=== PATIENT | female | born 1950 | race Hispanic/Latino ===

== ENCOUNTER 2017-06-30 17:20 | Emergency (ER) | payer MEDICARE ==
[2017-06-30 17:33] VITALS: TEMP 98.4
[2017-06-30] MEDS ORDERED: Oxymetazoline 0.05% Nasal Spray (30 ml) NS STA (18:22)
--- NOTE | 2017-06-30 18:26 | ED PDOC ---
Arrival/HPI - General Chief Complaint: ENT Problem Time Seen by Provider: 06/30/17 18:22 Historian: Patient - History of Present Illness Narrative History of Present Illness (Text): 06/30/17 18:23 This 67 yo female presents to this Emergency department with her complaining of epistaxis from left nares, intermittent since last night. Patient denies trauma, the use of blood thinner, headache, diplopia, dysarthria , dizziness, or abnormal gait. Time/Duration: Other (see hpi) Context: Home Past Medical History - Provider Review Nursing Documentation Reviewed: Yes - Cardiac Hx Cardiac Disorders: No - Pulmonary Hx Respiratory Disorders: No - Neurological Hx Neurological Disorder: No - HEENT Hx HEENT Disorder: No - Renal Hx Renal Disorder: No - Endocrine/Metabolic Hx Endocrine Disorders: No Hx Diabetes Mellitus Type 2: Yes - Hematological/Oncological Hx Blood Disorders: No Hx Blood Transfusions: No Hx Blood Transfusion Reaction: No - Integumentary Hx Dermatological Disorder: Yes Other/Comment: POORLY HEALING WOUND L 3RD TOE - Musculoskeletal/Rheumatological Hx Musculoskeletal Disorders: No Hx Falls: No - Gastrointestinal Hx Gastrointestinal Disorders: No - Genitourinary/Gynecological Hx Genitourinary Disorders: No - Psychiatric Hx Psychophysiologic Disorder: No Hx Substance Use: No - Surgical History Hx Amputation: Yes (THIRD LEFT TOE) Hx Section: Yes Hx Tonsillectomy: Yes Other/Comment: left third toe amputation. - Anesthesia Hx Anesthesia: No - Suicidal Assessment Feels Threatened In Home Enviroment: No Family/Social History - Physician Review Nursing Documentation Reviewed: Yes Family/Social History: Other (noncontributory) Smoking Status: Never Smoked Hx Alcohol Use: No Hx Substance Use: No Allergies/Home Meds Allergies/Adverse Reactions: Allergies No Known Allergies Allergy (Verified 06/30/17 17:25) Home Medications: Home Meds Medication Instructions Recorded Confirmed No Known Home Med 06/30/17 06/30/17 Review of Systems - Review of Systems Constitutional: Normal. absent: Fatigue, Weight Change, Fevers Eyes: Normal ENT: Epistaxis Respiratory: Normal. absent: SOB, Cough Cardiovascular: Normal. absent: Chest Pain Gastrointestinal: Normal. absent: Nausea, Vomiting Genitourinary Female: Normal Musculoskeletal: Normal Skin: Normal Neurological: Normal. absent: Headache, Dizziness, Focal Weakness, Gait Changes , Speech Changes, Facial Droop, Disequilibrium Endocrine: Normal Hemo/Lymphatic: Normal Psychiatric: Normal Physical Exam Vital Signs Temp Pulse Resp BP Pulse Ox 06/30/17 17:29 98.4 F 97 H 20 201/107 H 98 Temperature: Afebrile Blood Pressure: Normal Pulse: Regular Respiratory Rate: Normal Appearance: Positive for: Well-Appearing, Non-Toxic, Comfortable Pain Distress: None Mental Status: Positive for: Alert and Oriented X 3 - Systems Exam Head: Present: Atraumatic, Normocephalic Pupils: Present: PERRL Extroacular Muscles: Present: EOMI Conjunctiva: Present: Normal Mouth: Present: Moist Mucous Membranes Nose (External): Present: Atraumatic Nose (Internal): Present: Epistaxis (from left nare, nose bleeding has stopped) Neck: Present: Normal Range of Motion. No: Meningeal Signs Abdomen: Present: Normal Bowel Sounds. No: Tenderness, Distention, Peritoneal Signs Back: Present: Normal Inspection Upper Extremity: Present: Normal Inspection, Normal ROM. No: Cyanosis, Edema Lower Extremity: Present: Normal Inspection. No: Edema Neurological: Present: GCS=15, CN II-XII Intact, Speech Normal Skin: Present: Warm, Dry, Normal Color. No: Rashes Psychiatric: Present: Alert, Oriented x 3, Normal Insight, Normal Concentration Medical Decision Making ED Course and Treatment: 06/30/17 19:34 Re-evaluation. Patient feels better. Discussed results and plan with patient who expresses understanding. All questions answered and there is agreement with the plan to discharge home with instructions. Patient stable for discharge. Return if symptoms persist or worsen. Patient remained stable during the course of Emergency department visit. Epistaxis has improved. Patient does not want to have nasal packing at this time. she will return to Emergency department if nosebleed returns. Re-evaluation Time: 19:36 Reassessment Condition: Re-examined, Improved - Medication Orders Current Medication Orders: Discontinued Medications Oxymetazoline HCl (Afrin 0.05%) 3 ml NS STAT STA Stop: 06/30/17 18:23 Disposition/Present on Arrival - Present on Arrival Any Indicators Present on Arrival: No History of DVT/PE: No History of Uncontrolled Diabetes: Yes Urinary Catheter: No History of Decub. Ulcer: No History Surgical Site Infection Following: None - Disposition Have Diagnosis and Disposition been Completed?: Yes Diagnosis: Posterior epistaxis Disposition: HOME/ ROUTINE Disposition Time: 19:38 Patient Plan: Discharge Condition: IMPROVED Discharge Instructions (ExitCare): Nosebleeds (DC) Additional Instructions: Call Nose ear and throat doctor in 1-2 days for revaluation. Do not blow your nose, open your mouth when you sneezed, drink cold beverages, or room temperature drinks or food. Use a humidifier, and avoid strenuous activities. Return to emergency if nosebleed returns. Have blood pressure recheck in 1-2 days. Referrals: Hank Woodard DO [Staff Provider] - Follow up with primary Forms: [employer] (Slovenian)
[2017-06-30 20:18] VITALS: BP 134/72; PULSE 90; RESP 18; O2SAT 99
== END 2017-06-30 20:20 | disposition home or self-care (01) ==
LOC: ED 17:20
DX: R04.0 Epistaxis (principal); E11.9 Type 2 diabetes mellitus without complications

== ENCOUNTER 2018-05-23 12:06 | Inpatient (IN) | payer MEDICARE, OTHER ==
[2018-05-23 12:14] VITALS: BMI 32.4
--- NOTE | 2018-05-23 12:24 | ED PDOC ---
Arrival/HPI - General Time Seen by Provider: 05/23/18 12:07 Historian: Patient, EMS - History of Present Illness Narrative History of Present Illness (Text): 05/23/18 12:18 A 67 year old female, whose past medical history includes diabetes, is brought into the emergency department via EMS for further evaluation of altered mental status. Patient reports being unable to lift herself up from the toilette at her chiropractor's office this morning. Patient reports this happens often at home. The patient states that she had a fall 4 days ago and sustained an injury to her right arm, which is currently hurting. As per EMS, patient became dizzy at the chiropractor's office and fell. Patient denies fevers, chills, headache, chest pain, shortness of breath, dyspnea on exertion, cough, abdominal pain, nausea, vomiting, diarrhea, back pain, neck pain, urinary/bowel changes, or any other complaint. PMD: Dr. Shaikh Time/Duration: Prior to Arrival Symptom Onset: Sudden Symptom Course: Unchanged Activities at Onset: Rest, Light Context: Home Past Medical History - Provider Review Nursing Documentation Reviewed: Yes - Cardiac Hx Cardiac Disorders: No - Pulmonary Hx Respiratory Disorders: No - Neurological Hx Neurological Disorder: No - HEENT Hx HEENT Disorder: No - Renal Hx Renal Disorder: No - Endocrine/Metabolic Hx Endocrine Disorders: No Hx Diabetes Mellitus Type 2: Yes - Hematological/Oncological Hx Blood Disorders: No Hx Blood Transfusions: No Hx Blood Transfusion Reaction: No - Integumentary Hx Dermatological Disorder: Yes Other/Comment: POORLY HEALING WOUND L 3RD TOE - Musculoskeletal/Rheumatological Hx Musculoskeletal Disorders: No Hx Falls: No - Gastrointestinal Hx Gastrointestinal Disorders: No - Genitourinary/Gynecological Hx Genitourinary Disorders: No - Psychiatric Hx Psychophysiologic Disorder: No Hx Substance Use: No - Surgical History Hx Amputation: Yes (THIRD LEFT TOE) Hx Section: Yes Hx Tonsillectomy: Yes Other/Comment: left third toe amputation. - Anesthesia Hx Anesthesia: No - Suicidal Assessment Feels Threatened In Home Enviroment: No Family/Social History - Physician Review Nursing Documentation Reviewed: Yes Family/Social History: No Known Family HX Smoking Status: Never Smoked Hx Alcohol Use: No Hx Substance Use: No Allergies/Home Meds Allergies/Adverse Reactions: Allergies No Known Allergies Allergy (Verified 06/30/17 17:25) Home Medications: Home Meds Medication Instructions Recorded Confirmed glyBURIDE [Glyburide] 10 mg PO DAILY 05/23/18 05/23/18 Review of Systems - Physician Review All systems were reviewed & negative as marked: Yes - Review of Systems Constitutional: absent: Fevers Respiratory: absent: SOB, Cough Cardiovascular: absent: Chest Pain, VINES Gastrointestinal: absent: Abdominal Pain, Stool Changes, Diarrhea, Nausea, Vomiting Genitourinary Female: absent: Urine Output Changes Musculoskeletal: absent: Back Pain, Neck Pain Neurological: absent: Headache Physical Exam Vital Signs Reviewed: Yes Temperature: Febrile Blood Pressure: Hypertensive Respiratory Rate: Normal Appearance: Positive for: Non-Toxic, Comfortable Pain Distress: None Mental Status: Positive for: Alert and Oriented X 3 Medical Decision Making ED Course and Treatment: 05/23/18 12:25 Impression: A 67 year old female is brought into the emergency department via EMS s/p fall and dizziness at chiropractor's office prior to arrival. Plan: -- CTA Head/Neck -- Head CT -- EKG -- Right Shoulder X- Ray -- Chest X-ray -- Urine Culture -- Urinalysis -- Labs -- IV Fluids -- Reassess and disposition Prior Visits: Notes and results from previous visits were reviewed. Progress Notes: 05/23/18 12:15: Code Stroke called. Chest X-ray Dictator : Armando Guillermo MD Report Date : 05/23/2018 13:22:20 IMPRESSION:No active disease. Right Shoulder X- Ray Signed By : Armando Chapa MD Date Signed : 05/23/2018 13:23 IMPRESSION: Normal radiographs of the right shoulder. PROCEDURE: CT Angiography of the neck with contrast Signed By : Armando Chapa MD Date Signed : 05/23/2018 13:13 IMPRESSION: Unremarkable CT Angiography of the Brain. PROCEDURE: CT HEAD WITHOUT CONTRAST Signed By : Armando Chapa MD Date Signed : 05/23/2018 13:47 IMPRESSION: No acute intracranial findings. NIHSS Scale ([place]) Time Performed: 12:15 - How Severe is the Stoke Baseline Level of Consciousness: 0=Alert LOC to Questions: 0=Both comments correct LOC to commands: 0=Obeys both correctly Best Gaze: 0=Normal Visual: 0=No visual loss Facial: 0=Normal Motor Arm - Left: 0=No drift Motor Arm - Right: 0=No drift Motor Leg - Left: 0=No drift Motor Leg - Right: 0=No drift Limb Ataxia: 0=Absent Sensory: 0=Normal Best Language: 0=No aphasia Dysarthia: 0=Normal articulation Extinction & Inattention (Neglect): 0=Normal, no object Score: 0 Risk Level: No Stroke Risk rTPA Inclusion/Exclusion - Refusal of Treatment Patient Refused Treatment: No - Inclusion Criteria for Altepase Patient is 18 years or Older: Yes The Clinical Diagnosis of Ischemic Stroke That is Causing a Potentially Disabling Neurological Deficit: No Time of Onset is Well Established to be Less Than 270 Minute Before Treatment Would Begin: Yes Risk/Benefit Discussed With Patient/Family Member Present: No - Scribe Statement Cindy Echeverria Provider Scribe Attestation: All medical record entries made by the Scribe were at my direction and personally dictated by me. I have reviewed the chart and agree that the record accurately reflects my personal performance of the history, physical exam, medical decision making, and the department course for this patient. I have also personally directed, reviewed, and agree with the discharge instructions and disposition. Disposition/Present on Arrival - Present on Arrival Any Indicators Present on Arrival: Yes History of DVT/PE: No History of Uncontrolled Diabetes: Yes Urinary Catheter: No History Surgical Site Infection Following: None - Disposition Have Diagnosis and Disposition been Completed?: Yes Diagnosis: Near syncope Disposition: HOSPITALIZED Disposition Time: 15:30 Condition: STABLE
[2018-05-23] MEDS ORDERED: Iohexol 350 MG/100 ML VIAL ONE (12:25)
--- NOTE | 2018-05-23 12:51 | CT ---
Date of service: 05/23/2018 PROCEDURE: CT HEAD WITHOUT CONTRAST. HISTORY: Code Stroke COMPARISON: None available. TECHNIQUE: Axial computed tomography images were obtained through the head/brain without intravenous contrast. Radiation dose: Total exam DLP = 938.9 mGy-cm. This CT exam was performed using one or more of the following dose reduction techniques: Automated exposure control, adjustment of the mA and/or kV according to patient size, and/or use of iterative reconstruction technique. FINDINGS: HEMORRHAGE: No intracranial hemorrhage. BRAIN: No mass effect or edema. Chronic microvascular changes are seen in the periventricular white matter. Old lacunar infarct in the right caudate nucleus. Mild atrophy VENTRICLES: Unremarkable. No hydrocephalus. CALVARIUM: Unremarkable. PARANASAL SINUSES: Unremarkable as visualized. No significant inflammatory changes. MASTOID AIR CELLS: Unremarkable as visualized. No inflammatory changes. OTHER FINDINGS: None. IMPRESSION: No acute intracranial findings
--- NOTE | 2018-05-23 13:16 | CT ---
Date of service: 05/23/2018 PROCEDURE: CT Angiography of the neck with contrast HISTORY: AMS - code stroke COMPARISON: None. TECHNIQUE: Contiguous axial images of the neck were obtained from the level of the skull-base to the superior mediastinum in the arteriographic phase of enhancement. Coronal and sagittal reformats or also generated. IV contrast dose: 100 cc of Omni 350 Radiation dose: Total exam DLP = 604.44 mGy-cm. This CT exam was performed using one or more of the following dose reduction techniques: Automated exposure control, adjustment of the mA and/or kV according to patient size, and/or use of iterative reconstruction technique. FINDINGS: RIGHT CAROTID ARTERIES: Common Carotid Artery: Normal. Carotid Bifurcation: Normal. Internal Carotid Artery:Normal. External Carotid Artery (proximal branches): Normal. LEFT CAROTID ARTERIES: Common Carotid Artery: Normal. Carotid Bifurcation: Normal. Internal Carotid Artery:Normal. External Carotid Artery (proximal branches): Normal. VERTEBRAL ARTERIES: Right Vertebral Artery: Normal. Left Vertebral Artery: Normal. OTHER FINDINGS: no aortic atherosclerotic calcification or mural plaque present. IMPRESSION: Calcified plaque in the carotids without stenosis. CT Angiography of the Brain. HISTORY: AMS - code stroke COMPARISON: None available. TECHNIQUE: CT angiography of the intracranial arteries was performed. Coronal and sagittal maximum intensity projection reformated images were generated. Radiation dose: Total exam DLP = 604.44 mGy-cm. This CT exam was performed using one or more of the following dose reduction techniques: Automated exposure control, adjustment of the mA and/or kV according to patient size, and/or use of iterative reconstruction technique. FINDINGS: INTERNAL CEREBRAL ARTERIES: Unremarkable. The skull base, petrous, cavernous and supraclinoid segments are bilaterally widely patent. ANTERIOR CEREBRAL ARTERIES: Unremarkable. A1 and A2 segments are widely patent. Smaller distal branches unremarkable, as visualized. MIDDLE CEREBRAL ARTERIES: Unremarkable. M1 and M2 segments are widely patent. Perisylvian branches grossly symmetric. POSTERIOR CIRCULATION: Basilar Artery: Unremarkable. Distal Vertebral Arteries: Heavily calcified vertebral arteries Posterior Cerebral Arteries: Unremarkable. Posterior Inferior Cerebellar Arteries: Unremarkable. ANEURYSM/ VASCULAR MALFORMATIONS: None. OTHER FINDINGS: None. IMPRESSION: Unremarkable CT Angiography of the Brain.
--- NOTE | 2018-05-23 13:26 | RAD ---
Date of service: 05/23/2018 PROCEDURE: Radiographs of the Right Shoulder HISTORY: s/p fall r/o fx COMPARISON: No prior. FINDINGS: BONES: Normal. No fracture. JOINTS: Normal. Glenohumeral and acromioclavicular joints preserved. No osteoarthritis. SOFT TISSUES: Normal. OTHER FINDINGS: None. IMPRESSION: Normal radiographs of the right shoulder.
--- NOTE | 2018-05-23 13:26 | RAD ---
Date of service: 05/23/2018 HISTORY: Code Stroke COMPARISON: 08/18/2014 FINDINGS: LUNGS: No active pulmonary disease. PLEURA: No significant pleural effusion identified, no pneumothorax apparent. CARDIOVASCULAR: No aortic atherosclerotic calcification present. Normal cardiac size. No pulmonary vascular congestion. OSSEOUS STRUCTURES: No significant abnormalities. VISUALIZED UPPER ABDOMEN: Normal. OTHER FINDINGS: None. IMPRESSION: No active disease.
[2018-05-23 14:07] LABS: VENOUS BLOOD GAS BASE EXCESS -2.8 mmol/L (0.0-2.0); VENOUS BLOOD GAS PO2 69 mm/Hg (30-55); VENOUS BLOOD PH 7.42 (7.32-7.43)
--- NOTE | 2018-05-23 14:16 | CP.PCM.CON ---
History of Present Illness - History of Present Illness History of Present Illness: Neurology Consultation (Dr. Reynolds's Service) Consulting Provider: Dr. Polanco (Code Stroke) CC: Code Stroke HPI: Mrs. Stiles is a 67 year old female with a past medical history significant for uncontrolled DM2 with diabetic neuropathy, HTN, HLD and hypothyroidism who presented after a near syncopal episode. Neurology was consulted after code stroke was called in the [facility] [place] [facility]. Patient reports that she was at her chiropractor's office earlier today and was unable to lift herself from the toilet in the bathroom there secondary to weakness/dizziness. Patient reports that after trying several times, she fell off of the toilet. She reports that she has fallen multiple times at home recently, including four days ago when she fell off of her bed causing her to injure her right shoulder. This was her reason for visiting her chiropractor today. Outside of right shoulder pain, patient denies any current complaints and further 12 point ROS is unremarkable. PMH: As stated above PSH: LLE Third Digit Amputation, and Tonsillectomy Family History: Denies Social History: Denies any tobacco, alcohol or illicit drug use Allergies: NKDA Home Medications: As per MAR PMD: Dr. Shaikh Review of Systems - Review of Systems Review of Systems: As stated in HPI, otherwise negative Past Patient History - Infectious Disease Hx of Infectious Diseases: None - Past Social History Smoking Status: Never Smoked - CARDIAC Hx Cardiac Disorders: No - PULMONARY Hx Respiratory Disorders: No - NEUROLOGICAL Hx Neurological Disorder: No - HEENT Hx HEENT Problems: No - RENAL Hx Chronic Kidney Disease: No - ENDOCRINE/METABOLIC Hx Endocrine Disorders: No Hx Diabetes Mellitus Type 2: Yes - HEMATOLOGICAL/ONCOLOGICAL Hx Blood Disorders: No Hx Blood Transfusions: No Hx Blood Transfusion Reaction: No - INTEGUMENTARY Hx Dermatological Problems: Yes Other/Comment: POORLY HEALING WOUND L 3RD TOE - MUSCULOSKELETAL/RHEUMATOLOGICAL Hx Musculoskeletal Disorders: No Hx Falls: No - GASTROINTESTINAL Hx Gastrointestinal Disorders: No - GENITOURINARY/GYNECOLOGICAL Hx Genitourinary Disorders: No - PSYCHIATRIC Hx Psychophysiologic Disorder: No Hx Substance Use: No - SURGICAL HISTORY Hx Amputation: Yes (THIRD LEFT TOE) Hx Section: Yes Hx Tonsillectomy: Yes Other/Comment: left third toe amputation. - ANESTHESIA Hx Anesthesia: No Meds Allergies/Adverse Reactions: Allergies Allergy/AdvReac Type Severity Reaction Status Date / Time No Known Allergies Allergy Verified 06/30/17 17:25 - Medications Medications: Current Medications Sodium Chloride (Sodium Chloride 0.9%) 1,000 mls @ 100 mls/hr IV .Q10H MASOUD Physical Exam - Constitutional Appears: No Acute Distress - Head Exam Head Exam: ATRAUMATIC, NORMOCEPHALIC - Eye Exam Eye Exam: EOMI, Normal appearance, PERRL. absent: Conjunctival injection, Nystagmus, Periorbital swelling, Periorbital tenderness, Scleral icterus Pupil Exam: NORMAL ACCOMODATION - Respiratory Exam Respiratory Exam: NORMAL BREATHING PATTERN - Cardiovascular Exam Cardiovascular Exam: REGULAR RHYTHM - GI/Abdominal Exam GI & Abdominal Exam: Normal Bowel Sounds, Soft. absent: Tenderness - Neurological Exam Neurological exam: Alert, CN II-XII Intact, Oriented x3, Reflexes Normal - Expanded Neurological Exam Expanded Patient oriented to: person, place, time Cranial nerves: EOM's Intact: Normal, Facial Palsey w/Forehead Movement: Normal, Facial Palsey w/o Forehead Movement: Normal, Nystagmus: Normal, Tongue Deviation: Normal Cerebellar Function: Finger to Nose: Normal Sensory exam: Lower Extremity Light Touch: Normal, Upper Extremity Light Touch: Normal Neuro motor strength exam: Left Upper Extremity: 5, Right Upper Extremity: 0 (Unable to test this extremity 2/2 right shoulder pain), Left Lower Extremity: 5, Right Lower Extremity: 5 Coma Scale Eye Opening: SPONTANEOUS Coma Scale Motor Response: OBEYS COMMANDS Coma Scale Verbal: Oriented Coma Scale Total: 15 - Psychiatric Exam Psychiatric exam: Normal Affect, Normal Mood - Skin Skin Exam: Dry, Warm Results - Vital Signs Recent Vital Signs: Last Vital Signs Temp 100.2 F H 05/23/18 12:06 Pulse 100 H 05/23/18 12:06 Resp 18 05/23/18 12:06 BP 170/88 H 05/23/18 12:06 Pulse Ox 96 05/23/18 12:06 Assessment & Plan - Assessment and Plan (Free Text) Assessment: 67 year old female with a past medical history significant for uncontrolled DM2 with diabetic neuropathy, HTN, HLD and hypothyroidism who presented after a near syncopal episode. Plan: -CT Head without contrast showed mild atrophy, chronic microvascular changes in periventricular white matter, old lacunar infarct in the right caudate nucleus and no acute intracranial findings -CTA Head/Neck was unremarkable -Will obtain MRI Brain -Further recommendations as per Dr. Reynolds Patient seen and assessed with attending, Dr. Reynolds. Oliver Weber PGY2 - Date & Time Date: 05/23/18 Time: 14:18
[2018-05-23 14:22] LABS: BASO # 0.03 K/mm3 (0.0-2.0); BASO % 0.1 % (0.0-3.0); HEMOGLOBIN 13.6 g/dL (12.0-16.0); LYMPH # 0.9 (1.2-3.4); LYMPH % 4.4 % (22.0-35.0); MEAN CELL VOLUME 93.5 fl (80.0-105.0); MEAN CORPUSCULAR HEMOGLOBIN 32.5 pg (25.0-35.0); MEAN CORPUSCULAR HGB CONC 34.8 g/dl (31.0-37.0); MEAN PLATELET VOLUME 9.9 fl (7.0-11.0); MONO # 1.6 (0.1-0.6); MONO % 7.7 % (1.0-6.0); PLATELET COUNT 402 10^3/uL (120.0-450.0); RBC 4.18 10^6/uL (3.5-6.1); RED CELL DISTRIBUTION WIDTH 12.6 % (11.5-14.5); WHITE BLOOD COUNT 21.4 10^3/uL (4.5-11.0)
[2018-05-23 14:31] LABS: INR 1.26; PARTIAL THROMBOPLASTIN TIME 30.5 Seconds (26.9-38.3)
[2018-05-23 14:41] LABS: ALB/GLOB RATIO 0.9 (1.1-1.8); ALBUMIN 3.3 g/dL (3.0-4.8); ALT/SGPT 24 U/L (7-56); AST/SGOT 20 U/L (14-36); BLOOD UREA NITROGEN 27 mg/dL (7-21); GFR NON-AFRICAN AMERICAN > 60; HDL CHOLESTEROL 21 mg/dL (29-60)
[2018-05-23 14:43] LABS: LDL CHOLESTEROL 80 mg/dL (0-129)
[2018-05-23 14:51] LABS: B-TYPE NATRIURETIC PEPTIDE 3790 pg/mL (0-450); TROPONIN I 0.05 ng/mL
[2018-05-23 15:00] LABS: URINE BILIRUBIN NEGATIVE (NEGATIVE); URINE BLOOD MODERATE (NEGATIVE); URINE GLUCOSE (UA) >=1000 mg/dL (NEGATIVE); URINE LEUKOCYTE ESTERASE NEGATIVE Leu/uL (NEGATIVE); URINE PROTEIN 100 mg/dL (<30 mg/dL); URINE UROBILINOGEN 0.2 E.U./dL (<1 E.U./dL)
[2018-05-23] MEDS: Sodium Chloride 0.9% 1,000 ML IV SCH (15:01)
[2018-05-23 15:03] LABS: URINE APPEARANCE CLEAR (CLEAR); URINE COLOR YELLOW (YELLOW)
[2018-05-23 15:05] LABS: URINE BACTERIA MANY /hpf; URINE RBC 25 - 30 /hpf (0-2)
[2018-05-23 15:06] LABS: URINE AMORPHOUS SEDIMENT FEW /hpf; URINE COARSE GRANULAR CAST TRACE /hpf
[2018-05-23 15:08] LABS: BARBITURATES, UR NEGATIVE (NEGATIVE); BENZODIAZEPINES, UR NEGATIVE (NEGATIVE); OPIATES, UR NEGATIVE (NEGATIVE); PHENCYCLIDINE, UR NEGATIVE (NEGATIVE)
[2018-05-23 15:24] LABS: ATYPICAL LYMPHOCYTE 0 % (0.0-0.0); BAND 0 % (0-2); LYMPHOCYTE 7 % (22.0-35.0); MONOCYTE 8 % (1.0-6.0); NEUTROPHIL 85 % (50.0-70.0)
[2018-05-23 15:25] LABS: HYPOCHROMIA 2+; PLATELET ESTIMATE HIGH (NORMAL); ROULEAU 2+; TOXIC GRANULATION 2+
[2018-05-23] MEDS ORDERED: cefTRIAXone 1 gm 1 GM/100 ML BAG IVPB SCH (16:15)
[2018-05-23 21:49] LABS: TROPONIN I 0.05 ng/mL
[2018-05-23] MEDS: Cefepime 1gm in NS 100ml 1 GM/100 ML BAG IVPB SCH (22:49)
[2018-05-23] MEDS ORDERED: Pneumococcal 23-Valent Vaccine IM ONE (22:50)
[2018-05-23] MEDS ORDERED: Influenza Vaccine 60 mcg/0.5 mL SYR (4YR UP) IM ONE (22:50)
[2018-05-23] MEDS: Insulin Lispro (HUMAlog) HIGH Coverage SC SCH (22:52)
[2018-05-23] MEDS ORDERED: Insulin Lispro 1 UNITS/0.01 ML ONE (22:55)
--- NOTE | 2018-05-23 23:18 | CARD ---
APPROVED REPORT Date of service: 05/23/2018 EKG Measurement Heart [id number] DC [id number] [id number] <Conclusion> Normal sinus rhythm Nonspecific T wave abnormality Abnormal ECG
[2018-05-23] MEDS: Vancomycin 1gm in NS 250ml 1 GM/250 ML BAG IVPB SCH (23:38)
--- NOTE | 2018-05-23 23:48 | HP ---
DATE OF EXAM: 05/23/2018 HISTORY OF PRESENT ILLNESS: The patient is a 67-year-old known to me from multiple previous admissions. The patient states that she has back and neck issues. She goes to chiropractor for that. Today when she was there, she went to use the bathroom. When she tried to get up, she was unable to lift herself from the toilet, tried multiple times and finally when she tried, she fell on the right side and that was the same reason, she went to see the chiropractor because of her shoulder and neck pain. So, the ambulance was called and she was brought to emergency room. The patient is having difficulty walking, so code stroke was called and stroke team was called. The patient had CT scan done that is unremarkable. CTA also was done that is unremarkable. PAST MEDICAL HISTORY: 1. Significant for uncontrolled insulin-dependent diabetes. She is very noncompliant. 2. Diabetic neuropathy. 3. Hypertension. 4. Hypothyroidism. 5. History of multiple admissions for her foot infection. ALLERGIES: SHE IS NOT ALLERGIC TO ANY MEDICATIONS. The patient has peripheral vascular disease. She has chronic foot wound for that. She follows with Dr. Rondon for year, and she has been under the care of Dr. Rondon for right foot wound. MEDICATIONS AT HOME: She is on insulin. She takes blood pressure medication off and on. I cannot recall when I refilled her last medication. REVIEW OF SYSTEMS: Significant for having generalized weakness, otherwise no focal weakness or numbness. PHYSICAL EXAMINATION: GENERAL: She is awake and alert, able to communicate. VITAL SIGNS: She is afebrile, pulse 90, respirations 18, blood pressure 138/72. LUNGS: Bilateral fair air flow. No rhonchi or crackle. HEART: S1 and S2 audible. ABDOMEN: Soft, obese, nontender. No rebound. No guarding. NEUROLOGIC: She is awake, alert, oriented. Recently, she was confused, but seems to be improving now. EXTREMITIES: Right foot is in the dressing. LABORATORY DATA: WBC 21.4, hemoglobin 13.6, hematocrit 39.1, platelets 402. PT 14.0, INR 1.26. Chemistry; sodium 132, potassium 4.0, chloride 94, CO2 of 21, BUN 27, creatinine 0.7. Blood sugars 357. LFTs are within normal limits. BNP is 3790. Urine shows moderate blood and rbc's. Urine tox is unremarkable. ASSESSMENT: 1. Near syncope. 2. Status post fall. 3. . 4. Insulin-dependent diabetes. 5. Uncontrolled diabetes. 6. Hypertension. 7. Hypothyroidism. 8. Peripheral vascular disease. 9. Chronic right foot wound. PLAN: The patient is empirically being covered for urinary tract infection. Neuro evaluation has been requested. I will request for Infectious Disease evaluation. We will monitor her blood sugar and give her coverage. We will reevaluate the patient in a.m. Ana Shaikh MD
[2018-05-24] MEDS: Sodium Chloride 0.9% 1,000 ML IV SCH (04:25)
[2018-05-24] MEDS: Cefepime 1gm in NS 100ml 1 GM/100 ML BAG IVPB SCH (05:42)
[2018-05-24] MEDS ORDERED: Insulin Lispro (humaLOG) MIX 75/25(10 ml) SC SCH (07:30)
[2018-05-24 07:49] LABS: BASO # 0.02 K/mm3 (0.0-2.0); BASO % 0.1 % (0.0-3.0); HEMOGLOBIN 12.7 g/dL (12.0-16.0); LYMPH # 0.8 (1.2-3.4); LYMPH % 3.5 % (22.0-35.0); MEAN CELL VOLUME 93.5 fl (80.0-105.0); MEAN CORPUSCULAR HEMOGLOBIN 31.8 pg (25.0-35.0); MEAN PLATELET VOLUME 9.5 fl (7.0-11.0); MONO # 2.1 (0.1-0.6); MONO % 8.9 % (1.0-6.0); RED CELL DISTRIBUTION WIDTH 12.7 % (11.5-14.5); WHITE BLOOD COUNT 24.1 10^3/uL (4.5-11.0)
[2018-05-24 08:08] LABS: ALB/GLOB RATIO 0.9 (1.1-1.8); ALBUMIN 2.9 g/dL (3.0-4.8); ALT/SGPT 18 U/L (7-56); AST/SGOT 18 U/L (14-36); BLOOD UREA NITROGEN 28 mg/dL (7-21); CALCIUM 8.4 mg/dL (8.4-10.5); GFR NON-AFRICAN AMERICAN > 60
[2018-05-24 08:28] LABS: FREE T4 1.42 ng/dL (0.78-2.19)
[2018-05-24] MEDS: Insulin Lispro (HUMAlog) HIGH Coverage SC SCH ×4 (09:11→22:35)
--- NOTE | 2018-05-24 09:51 | CP.PCM.CON ---
History of Present Illness - History of Present Illness History of Present Illness: Awake, alert, no distress, complaining of left shoulder pain Reason for consultation: Cardiac evaluation of near syncope Brief history of present illness: A 67 year old female who came in to the ER near syncopal episode. Patient reports that she was at her chiropractor's office earlier today and was unable to lift herself from the toilet in the bathroom secondary to weakness/dizziness. Patient reports that after trying several t imes, she fell off of the toilet. She claimed that she had fallen multiple times at home and recently fell again prior to admission and sustained right shoulder/arm pain. History of hypertension, hyperlipidemia, hypothyroidism, uncontrolled diabetes, diabetic neuropathy, LLE third digit amputation, tonsillectomy.Consult was called to evaluate near syncope. Seen and examined by me and Dr. Ayers Review of Systems - Review of Systems All systems: reviewed and no additional remarkable complaints except Review of Systems: as per HPI Past Patient History - Infectious Disease Hx of Infectious Diseases: None - Past Social History Smoking Status: Never Smoked - CARDIAC Hx Cardiac Disorders: Yes Hx Peripheral Edema: Yes (ble +1) - PULMONARY Hx Respiratory Disorders: No - NEUROLOGICAL Hx Neurological Disorder: No - HEENT Hx HEENT Problems: No - RENAL Hx Chronic Kidney Disease: No - ENDOCRINE/METABOLIC Hx Endocrine Disorders: Yes Hx Diabetes Mellitus Type 2: Yes - HEMATOLOGICAL/ONCOLOGICAL Hx Blood Disorders: No - INTEGUMENTARY Hx Dermatological Problems: Yes Other/Comment: right 2nd toe missing nail toenails dry thick cracked both feet, left ankle bruises, discolorred b/l feet, amputation of left foot 3rd toe, non healing dry brown wound bottom left foot dressing done by dr garcia every 2 weeks, multiple small brown skin spots ble, dry skin both feet - MUSCULOSKELETAL/RHEUMATOLOGICAL Hx Falls: Yes (fell 4 days ago and today) - GASTROINTESTINAL Hx Gastrointestinal Disorders: Yes (obese) - GENITOURINARY/GYNECOLOGICAL Hx Genitourinary Disorders: No - PSYCHIATRIC Hx Psychophysiologic Disorder: No - SURGICAL HISTORY Hx Amputation: Yes (THIRD LEFT TOE) Other/Comment: left third toe amputation. , tonsillectomy - ANESTHESIA Hx Anesthesia: No Meds Allergies/Adverse Reactions: Allergies Allergy/AdvReac Type Severity Reaction Status Date / Time No Known Allergies Allergy Verified 06/30/17 17:25 - Medications Medications: Current Medications Aspirin (Ecotrin) 81 mg PO DAILY PENDING SALE TO [facility] Sodium Chloride (Sodium Chloride 0.9%) 1,000 mls @ 100 mls/hr IV .Q10H [facility] Last Admin: 05/24/18 04:25 Dose: 100 mls/hr Cefepime HCl (Maxipime 1gm) 1 gm in 100 mls @ 100 mls/hr IVPB Q8 PENDING SALE TO [facility]; Protocol Last Admin: 05/24/18 05:42 Dose: 100 mls/hr Vancomycin HCl (Vancomycin 1gm) 1 gm in 250 mls @ 167 mls/hr IVPB Q12H [facility]; Protocol Last Admin: 05/23/18 23:38 Dose: 167 mls/hr Insulin Human Lispro (Humalog High) 0 units SC ACHS [facility]; Protocol Last Admin: 05/24/18 09:11 Dose: 10 unit Insulin Lispro Protam/Lispro Human (Humalog Mix 75/25) 8 units SC ACBD [facility] Physical Exam - Constitutional Appears: Non-toxic, No Acute Distress - Head Exam Head Exam: NORMAL INSPECTION, NORMOCEPHALIC - Eye Exam Eye Exam: Normal appearance Pupil Exam: NORMAL ACCOMODATION - ENT Exam ENT Exam: Mucous Membranes Moist, Normal Exam - Cardiovascular Exam Cardiovascular Exam: REGULAR RHYTHM, +S1, +S2 Additional comments: Telemetry NSR 70's - Extremities Exam Extremities exam: Positive for: full ROM Additional comments: left shoulder pain right foot dressing - Neurological Exam Neurological exam: Alert, Oriented x3 - Psychiatric Exam Psychiatric exam: Normal Affect, Normal Mood - Skin Skin Exam: Dry, Normal Color, Warm Results - Vital Signs Recent Vital Signs: Last Vital Signs Temp 98.5 F 05/24/18 05:19 Pulse 87 05/24/18 05:19 Resp 149 H 05/24/18 05:19 BP 163/73 H 05/24/18 00:01 Pulse Ox 97 05/23/18 22:52 - Labs Result Diagrams: 05/24/18 07:30 05/24/18 07:30 Labs: Laboratory Results - last 24 hr 05/23/18 05/23/18 05/23/18 13:50 13:50 13:50 WBC 21.4 H RBC 4.18 Hgb 13.6 Hct 39.1 MCV 93.5 MCH 32.5 MCHC 34.8 RDW 12.6 Plt Count 402 MPV 9.9 Neut % (Auto) 88.4 H Lymph % (Auto) 4.4 L Swift % (Auto) 7.7 H Eos % (Auto) 0.0 L Baso % (Auto) 0.1 Lymph # (Auto) 0.9 L Swift # (Auto) 1.6 H Eos # (Auto) 0.0 Baso # (Auto) 0.03 Absolute Neuts (auto) 16.58 H Neutrophils % (Manual) 85 H Band Neutrophils % 0 Lymphocytes % (Manual) 7 L Atypical Lymphs % 0 Monocytes % (Manual) 8 H Immature Lymphocytes 0 Toxic Granulation 2+ Platelet Evaluation High Hypochromasia 2+ Rouleaux 2+ PT 14.0 H INR 1.26 APTT 30.5 pO2 VBG pH VBG pCO2 VBG HCO3 VBG Total CO2 VBG O2 Sat (Calc) VBG Base Excess VBG Potassium Sodium 132 Chloride 94 L Glucose Lactate FiO2 Potassium 4.0 Carbon Dioxide 21 Anion Gap 21 H BUN 27 H Creatinine 0.7 Est GFR ( Amer) > 60 Est GFR (Non-Af Amer) > 60 POC Glucose (mg/dL) Random Glucose 356 H* D Calcium 9.0 Phosphorus Magnesium Total Bilirubin 0.7 AST 20 ALT 24 Alkaline Phosphatase 119 Troponin I 0.05 NT-Pro-B Natriuret Pep 3790 H Total Protein 7.2 Albumin 3.3 Globulin 3.9 Albumin/Globulin Ratio 0.9 L Triglycerides 157 Cholesterol 170 LDL Cholesterol Direct 80 HDL Cholesterol 21 L Free T4 Venous Blood Potassium Urine Color Urine Appearance Urine pH Ur Specific [place] Urine Protein Urine Glucose (UA) Urine Ketones Urine Blood Urine Nitrate Urine Bilirubin Urine Urobilinogen Ur Leukocyte Esterase Urine RBC Urine WBC Ur Epithelial Cells Amorphous Sediment Urine Bacteria Coarse Granular Casts Urine Other Urine Opiates Screen Urine Methadone Screen Ur Barbiturates Screen Ur Phencyclidine Scrn Ur Amphetamines Screen U Benzodiazepines Scrn U Oth Cocaine Metabols U Cannabinoids Screen Blood Type Blood Type Confirm Antibody Screen BBK History Checked 05/23/18 05/23/18 05/23/18 13:50 13:50 14:30 WBC RBC Hgb Hct MCV MCH MCHC RDW Plt Count MPV Neut % (Auto) Lymph % (Auto) Swift % (Auto) Eos % (Auto) Baso % (Auto) Lymph # (Auto) Swift # (Auto) Eos # (Auto) Baso # (Auto) Absolute Neuts (auto) Neutrophils % (Manual) Band Neutrophils % Lymphocytes % (Manual) Atypical Lymphs % Monocytes % (Manual) Immature Lymphocytes Toxic Granulation Platelet Evaluation Hypochromasia Rouleaux PT INR APTT pO2 69 H VBG pH 7.42 VBG pCO2 32.0 L VBG HCO3 20.8 L VBG Total CO2 21.8 L VBG O2 Sat (Calc) 95.8 H VBG Base Excess -2.8 L VBG Potassium 3.6 Sodium 130.0 L Chloride 93.0 L Glucose 373 H Lactate 1.7 FiO2 21.0 Potassium Carbon Dioxide Anion Gap BUN Creatinine Est GFR ( Amer) Est GFR (Non-Af Amer) POC Glucose (mg/dL) Random Glucose Calcium Phosphorus Magnesium Total Bilirubin AST ALT Alkaline Phosphatase Troponin I NT-Pro-B Natriuret Pep Total Protein Albumin Globulin Albumin/Globulin Ratio Triglycerides Cholesterol LDL Cholesterol Direct HDL Cholesterol Free T4 Venous Blood Potassium 3.6 Urine Color Yellow Urine Appearance Clear Urine pH 6.0 Ur Specific [place] >= 1.030 Urine Protein 100 H Urine Glucose (UA) >=1000 Urine Ketones >=80 Urine Blood Moderate H Urine Nitrate Negative Urine Bilirubin Negative Urine Urobilinogen 0.2 Ur Leukocyte Esterase Negative Urine RBC 25 - 30 H Urine WBC 1 - 3 Ur Epithelial Cells 4 - 5 Amorphous Sediment Few Urine Bacteria Many Coarse Granular Casts Trace Urine Other Uyeast Urine Opiates Screen Urine Methadone Screen Ur Barbiturates Screen Ur Phencyclidine Scrn Ur Amphetamines Screen U Benzodiazepines Scrn U Oth Cocaine Metabols U Cannabinoids Screen Blood Type O POSITIVE Blood Type Confirm Antibody Screen Negative BBK History Checked No verified bt 05/23/18 05/23/18 05/23/18 14:30 15:37 19:23 WBC RBC Hgb Hct MCV MCH MCHC RDW Plt Count MPV Neut % (Auto) Lymph % (Auto) Swift % (Auto) Eos % (Auto) Baso % (Auto) Lymph # (Auto) Swift # (Auto) Eos # (Auto) Baso # (Auto) Absolute Neuts (auto) Neutrophils % (Manual) Band Neutrophils % Lymphocytes % (Manual) Atypical Lymphs % Monocytes % (Manual) Immature Lymphocytes Toxic Granulation Platelet Evaluation Hypochromasia Rouleaux PT INR APTT pO2 VBG pH VBG pCO2 VBG HCO3 VBG Total CO2 VBG O2 Sat (Calc) VBG Base Excess VBG Potassium Sodium Chloride Glucose Lactate FiO2 Potassium Carbon Dioxide Anion Gap BUN Creatinine Est GFR ( Amer) Est GFR (Non-Af Amer) POC Glucose (mg/dL) 341 H Random Glucose Calcium Phosphorus Magnesium Total Bilirubin AST ALT Alkaline Phosphatase Troponin I NT-Pro-B Natriuret Pep Total Protein Albumin Globulin Albumin/Globulin Ratio Triglycerides Cholesterol LDL Cholesterol Direct HDL Cholesterol Free T4 Venous Blood Potassium Urine Color Urine Appearance Urine pH Ur Specific [place] Urine Protein Urine Glucose (UA) Urine Ketones Urine Blood Urine Nitrate Urine Bilirubin Urine Urobilinogen Ur Leukocyte Esterase Urine RBC Urine WBC Ur Epithelial Cells Amorphous Sediment Urine Bacteria Coarse Granular Casts Urine Other Urine Opiates Screen Negative Urine Methadone Screen Negative Ur Barbiturates Screen Negative Ur Phencyclidine Scrn Negative Ur Amphetamines Screen Negative U Benzodiazepines Scrn Negative U Oth Cocaine Metabols Negative U Cannabinoids Screen Negative Blood Type Blood Type Confirm O POSITIVE Antibody Screen BBK History Checked 05/23/18 05/23/18 05/24/18 21:24 22:50 07:30 WBC 24.1 H RBC 4.00 Hgb 12.7 Hct 37.4 MCV 93.5 MCH 31.8 MCHC 34.0 RDW 12.7 Plt Count 408 MPV 9.5 Neut % (Auto) 87.5 H Lymph % (Auto) 3.5 L Swift % (Auto) 8.9 H Eos % (Auto) 0.0 L Baso % (Auto) 0.1 Lymph # (Auto) 0.8 L Swift # (Auto) 2.1 H Eos # (Auto) 0.0 Baso # (Auto) 0.02 Absolute Neuts (auto) 21.05 H Neutrophils % (Manual) Band Neutrophils % Lymphocytes % (Manual) Atypical Lymphs % Monocytes % (Manual) Immature Lymphocytes Toxic Granulation Platelet Evaluation Hypochromasia Rouleaux PT INR APTT pO2 VBG pH VBG pCO2 VBG HCO3 VBG Total CO2 VBG O2 Sat (Calc) VBG Base Excess VBG Potassium Sodium Chloride Glucose Lactate FiO2 Potassium Carbon Dioxide Anion Gap BUN Creatinine Est GFR ( Amer) Est GFR (Non-Af Amer) POC Glucose (mg/dL) 345 H Random Glucose Calcium Phosphorus Magnesium Total Bilirubin AST ALT Alkaline Phosphatase Troponin I 0.05 NT-Pro-B Natriuret Pep Total Protein Albumin Globulin Albumin/Globulin Ratio Triglycerides 117 Cholesterol 147 LDL Cholesterol Direct 75 HDL Cholesterol 21 L Free T4 Venous Blood Potassium Urine Color Urine Appearance Urine pH Ur Specific [place] Urine Protein Urine Glucose (UA) Urine Ketones Urine Blood Urine Nitrate Urine Bilirubin Urine Urobilinogen Ur Leukocyte Esterase Urine RBC Urine WBC Ur Epithelial Cells Amorphous Sediment Urine Bacteria Coarse Granular Casts Urine Other Urine Opiates Screen Urine Methadone Screen Ur Barbiturates Screen Ur Phencyclidine Scrn Ur Amphetamines Screen U Benzodiazepines Scrn U Oth Cocaine Metabols U Cannabinoids Screen Blood Type Blood Type Confirm Antibody Screen BBK History Checked 05/24/18 05/24/18 05/24/18 07:30 07:30 08:57 WBC RBC Hgb Hct MCV MCH MCHC RDW Plt Count MPV Neut % (Auto) Lymph % (Auto) Swift % (Auto) Eos % (Auto) Baso % (Auto) Lymph # (Auto) Swift # (Auto) Eos # (Auto) Baso # (Auto) Absolute Neuts (auto) Neutrophils % (Manual) Band Neutrophils % Lymphocytes % (Manual) Atypical Lymphs % Monocytes % (Manual) Immature Lymphocytes Toxic Granulation Platelet Evaluation Hypochromasia Rouleaux PT INR APTT pO2 VBG pH VBG pCO2 VBG HCO3 VBG Total CO2 VBG O2 Sat (Calc) VBG Base Excess VBG Potassium Sodium 134 Chloride 98 Glucose Lactate FiO2 Potassium 3.3 L Carbon Dioxide 21 Anion Gap 18 BUN 28 H Creatinine 0.8 Est GFR ( Amer) > 60 Est GFR (Non-Af Amer) > 60 POC Glucose (mg/dL) 331 H Random Glucose 306 H* Calcium 8.4 Phosphorus 3.7 Magnesium 2.0 Total Bilirubin 0.6 AST 18 ALT 18 Alkaline Phosphatase 111 Troponin I NT-Pro-B Natriuret Pep Total Protein 6.3 Albumin 2.9 L Globulin 3.3 Albumin/Globulin Ratio 0.9 L Triglycerides Cholesterol LDL Cholesterol Direct HDL Cholesterol Free T4 1.42 Venous Blood Potassium Urine Color Urine Appearance Urine pH Ur Specific [place] Urine Protein Urine Glucose (UA) Urine Ketones Urine Blood Urine Nitrate Urine Bilirubin Urine Urobilinogen Ur Leukocyte Esterase Urine RBC Urine WBC Ur Epithelial Cells Amorphous Sediment Urine Bacteria Coarse Granular Casts Urine Other Urine Opiates Screen Urine Methadone Screen Ur Barbiturates Screen Ur Phencyclidine Scrn Ur Amphetamines Screen U Benzodiazepines Scrn U Oth Cocaine Metabols U Cannabinoids Screen Blood Type Blood Type Confirm Antibody Screen BBK History Checked Assessment & Plan - Assessment and Plan (Free Text) Assessment: A 67 year old female who came in to the ER near syncopal episode. Patient reports that she was at her chiropractor's office earlier today and was unable to lift herself from the toilet in the bathroom secondary to weakness/dizziness. Patient reports that after trying several times, she fell off of the toilet. She claimed that she had fallen multiple times at home and recently fell again prior to admission and sustained right shoulder/arm pain. History of hypertension, hyperlipidemia, hypothyroidism, uncontrolled diabetes, diabetic neuropathy,chronic right foot wound. LLE third digit amputation,tonsillectomy. Code stroke was called in the ER but ruled out stroke. CT of head no bleeding/ unremarkable. Chest X ray of shoulder negative for fracture.Consult was called to evaluate near syncope. Rule out orthostatic hypotension. Will order orthostatic vital signs.No previous cardiac work up done at [facility] [place]. Will order echo to evaluate LV function. Low dose Lovenox for DVT prophylaxis. Carotid studies p ending. Yeast in urine. Blood culture gram positive cocci, ID on consult. Uncontrolled glucose, Non-compliant with medications. Plan: Denies chest pain Echo to evaluate LV function Orthostatic vital signs for hypotension Uncontrolled blood pressure Will start low dose Cozaar Continue IV fluids for hydration On ASA 81 mg daily Continue current treatment Continue current medications Continue IV antibiotics as ordered by ID ( gram positive cocci- blood culture) Lovenox for DVT prophylaxis Glucose Control Low potassium today will order 40 meq x 2 doses Continue IV antibiotics per ID Will follow up Further recommendations during hospital course Plan and treatment discussed with Dr. Ayers Thank you Dr. Shaikh for the opportunity of taking care of Maricel Stiles - Date & Time Date: 05/24/18 Time: 06:40
[2018-05-24] MEDS: Vancomycin 1gm in NS 250ml 1 GM/250 ML BAG IVPB SCH ×2 (10:11→22:10)
[2018-05-24] MEDS ORDERED: Potassium Chloride 20 mEq ER Tab PO STA ×2 (10:27→10:28)
[2018-05-24] MEDS: Enoxaparin 40 mg Syringe SC SCH (10:51)
[2018-05-24] MEDS ORDERED: MethylPREDNISolone Depo 40 mg/ml Inj IM ONE (11:14)
[2018-05-24] MEDS ORDERED: Bupivacaine 0.5% Inj(30mL) IJ ONE (11:14)
[2018-05-24] MEDS ORDERED: Potassium Chloride 20 mEq ER Tab PO ONE (12:00)
[2018-05-24] MEDS: cefTRIAXone 2 GM IN NS 2 GM/100 ML BAG IVPB SCH (13:59)
--- NOTE | 2018-05-24 16:14 | CON ---
DATE: 05/24/2018 LOCATION: The patient is seen earlier this morning in Room 277, Bed 2. CHIEF COMPLAINT: Weakness times several days. HISTORY OF PRESENT ILLNESS: This is a 67-year-old female who has history of diabetes mellitus and who was at home and had problems getting off of the toilet. She felt dizzy and weak. She denied any shortness of breath. No chest pain. There was dizziness. No fevers, no chills. She does have complaints of urinary incontinence but no frequency and no dysuria. REVIEW OF SYSTEMS: A 12-point review of systems is performed. PAST MEDICAL HISTORY: Significant for obesity, diabetes mellitus, dyslipidemia, peripheral vascular disease, history of left foot MRSA cellulitis and osteomyelitis. PAST SURGICAL HISTORY: Significant for tonsillectomy, left foot surgery, . ALLERGIES: THE PATIENT HAS NO KNOWN ALLERGIES. MEDICATIONS AT HOME: Medications at home reveals the patient to be on glyburide. PHYSICAL EXAMINATION: GENERAL: The patient is in bed, in no acute distress. She is answering questions appropriately. She is awake and alert. VITAL SIGNS: Temperature is 98.5, T-max in the emergency room was 100.2 with a pulse rate of 94; it was as high as 100 in the emergency room. Respiratory rate of 18 with a blood pressure of 156/86. The patient's oxygen saturation is 96. HEENT: Examination of HEENT is unremarkable. NECK: Supple. LUNGS: Decreased breath sounds. HEART: Normal S1, S2. ABDOMEN: Soft, nontender. No rebound, no guarding, no masses. LABORATORY DATA: Laboratory examination reveals the patient's white count of 21,400, hemoglobin of 13.6, platelets of 402,000 with 88% polys. The patient does have 8% monocytosis and repeat white count this morning again showed white count of 24,000. There was no bandemia reported. Coagulation is noted. Blood gases are reviewed. Chemistries reveal the patient to have a random glucose of 306. BUN of 28, creatinine is 0.8, bicarb is 21 with an anion gap of 18 and a low potassium of 3.3. Urinalysis reveals many bacteria, 25-30 rbc's, 1 to 3 wbc's. Review of microbiology reveals the gram-positive cocci. Blood cultures, I was not notified of these blood culture results. It is reported to be in chains, gram-positive cocci in both blood cultures, both in chains. Review of the imaging reveals the patient had a chest x-ray which showed no active pulmonary disease. EKG which shows a QTc of 413. CAT scan of the head negative. . Oliver Weber's consultation is reviewed and history and physical examination by Dr. Shaikh is also reviewed and cardiology note by Aileen Gu is reviewed. ASSESSMENT AND PLAN: A 67-year-old female with hypertension, diabetes, hypothyroidism, obesity with a BMI of 32, peripheral vascular disease, chronic left foot MRSA osteomyelitis, presenting with leukocytosis, tachycardia, low-grade fevers. 1. Sepsis with gram-positive cocci in chains. Bacteremia. Must rule out underlying endocarditis. The source of the gram-positive cocci in chains is not clear. We will start the patient on vancomycin and we will discontinue the cefepime and use ceftriaxone. We will repeat blood cultures x2. We will order an echo and a sed rate and C-reactive protein, pending identification and sensitivity of the gram-positive cocci, rule out endocarditis versus pneumonia versus Enterococcus, alpha hemolytic versus beta hemolytic strep and echo results. We will make further recommendation pending availability of initial results. Must rule out underlying osteomyelitis foot as a possible source based on identification and sensitivity. We will follow with you. Mravin West MD
[2018-05-24] MEDS: Insulin Lispro (humaLOG) MIX 75/25(10 ml) SC SCH (17:36)
--- NOTE | 2018-05-24 19:20 | CON ---
DATE: 05/24/2018 ORTHOPEDIC CONSULT A 67-year-old female, patient is seen in room 277, bed 2. HISTORY OF PRESENT ILLNESS: The patient slipped and fell prior to admission at doctor's office and injured her right shoulder. X-rays are within normal limits except for the mild osteoarthritis of the right AC joint. She is right-hand dominant. There is evidence of subacromial spurring, which indicates subacromial impingement, which was made worse on the AC joint arthritis with the fall and it is very painfull is also tender over the subacromial space and over the AC joint. Her attending is Dr. Shaikh and she said because of the high blood sugar, we should delay her Depo-Medrol and Marcaine injection for the subacromial bursitis and AC joint arthritis and wait until the blood sugar comes down, so I will evaluate her tomorrow morning on Saturday to see if the blood sugar is down, I will inject the right shoulder with Depo-Medrol and Marcaine, which gives some symptomatic relief. In the meantime, Dr. Shaikh who put her on some pain medications and there is no sling needed, but we have to avoid a frozen shoulder by moving it once in a while and that will be easier to do once I do the injection of the subacromial joint with Depo-Medrol and Marcaine. FINAL DIAGNOSES: Traumatic bursitis right shoulder with acromioclavicular joint arthritis and subacromial bursitis and impingement. Armando Flores DO [facility] HOSPITALGrabiel
--- NOTE | 2018-05-24 21:34 | US ---
PROCEDURE: Bilateral carotid artery duplex ultrasound HISTORY: Carotid stenosis PHYSICIAN(S): Jostin Rivas MD. TECHNIQUE: Duplex sonography and color-flow Doppler were used to evaluate the carotid bifurcations and limited segments of the vertebral arteries bilaterally. FINDINGS: The exam is very limited by the patient's movement and inability to cooperate. The vessels are moderately tortuous There is mild smooth heterogeneous plaque noted at the carotid bifurcations bilaterally. The peak systolic velocity in the proximal right internal carotid artery is 49 cm/sec. This corresponds to a 20 to 39% proximal right ICA stenosis. Normal systolic velocities are noted in the proximal right external carotid artery. There is antegrade flow in the right vertebral artery. The peak systolic velocity in the proximal left internal carotid artery is 63 cm/sec. This corresponds to a 20 to 39% proximal left ICA stenosis. Normal systolic velocities are noted in the proximal left external carotid artery. There is antegrade flow in the left vertebral artery. IMPRESSION: 1. Bilateral 20-39% proximal ICA stenoses. 2. Antegrade flow in both vertebral arteries.
--- NOTE | 2018-05-25 07:43 | CP.PCM.PN ---
Subjective - Date & Time of Evaluation Date of Evaluation: 05/25/18 Time of Evaluation: 06:25 - Subjective Subjective: No distress, awake Reason for consultation: Cardiac evaluation of near syncope, History of hypertension, hyperlipidemia, hypothyroidism, uncontrolled diabetes, diabetic neuropathy, LLE third digit amputation,tonsillectomy Seen and examined by me and Dr. Ayers Objective - Vital Signs/Intake and Output Vital Signs (last 24 hours): Temp Pulse Resp BP Pulse Ox 98.7 F 85 19 166/85 H 95 05/25/18 06:00 05/25/18 06:00 05/25/18 06:00 05/25/18 06:00 05/25/18 06:00 Intake and Output: 05/25/18 05/25/18 06:59 18:59 Intake Total 1150 Output Total 600 Balance 550 - Medications Medications: Current Medications Aspirin (Ecotrin) 81 mg PO DAILY [facility] Last Admin: 05/24/18 10:11 Dose: 81 mg Enoxaparin Sodium (Lovenox) 40 mg SC DAILY [facility]; Protocol Last Admin: 05/24/18 10:51 Dose: 40 mg Sodium Chloride (Sodium Chloride 0.9%) 1,000 mls @ 100 mls/hr IV .Q10H [facility] Last Admin: 05/24/18 04:25 Dose: 100 mls/hr Vancomycin HCl (Vancomycin 1gm) 1 gm in 250 mls @ 167 mls/hr IVPB Q12H [facility]; Protocol Last Admin: 05/24/18 22:10 Dose: 167 mls/hr Ceftriaxone Sodium (Rocephin 2 Gm Ivpb) 2 gm in 100 mls @ 100 mls/hr IVPB DAILY [facility]; Protocol Stop: 06/02/18 10:16 Last Admin: 05/24/18 13:59 Dose: 100 mls/hr Insulin Human Lispro (Humalog High) 0 units SC ACHS [facility]; Protocol Last Admin: 05/24/18 22:35 Dose: Not Given Insulin Lispro Protam/Lispro Human (Humalog Mix 75/25) 15 units SC ACBD [facility] Last Admin: 05/24/18 17:36 Dose: 15 units Losartan Potassium (Cozaar) 25 mg PO DAILY [facility] Last Admin: 05/24/18 10:51 Dose: 25 mg - Labs Labs: 05/24/18 07:30 05/24/18 07:30 PT 14.0 SECONDS (9.4-12.5) H 05/23/18 13:50 INR 1.26 05/23/18 13:50 APTT 30.5 Seconds (26.9-38.3) 05/23/18 13:50 - Constitutional Appears: Non-toxic, No Acute Distress - Head Exam Head Exam: NORMAL INSPECTION, NORMOCEPHALIC - Eye Exam Eye Exam: Normal appearance Pupil Exam: NORMAL ACCOMODATION - ENT Exam ENT Exam: Mucous Membranes Moist, Normal Exam - Respiratory Exam Respiratory Exam: Clear to Ausculation Bilateral, NORMAL BREATHING PATTERN - Cardiovascular Exam Cardiovascular Exam: REGULAR RHYTHM, +S1, +S2 Additional comments: Telemetry NSR 70's - GI/Abdominal Exam GI & Abdominal Exam: Soft, Normal Bowel Sounds - Extremities Exam Additional comments: left shoulder pain right foot dressing - Neurological Exam Neurological Exam: Alert, Awake, Oriented x3 - Psychiatric Exam Psychiatric exam: Normal Affect, Normal Mood - Skin Skin Exam: Dry, Normal Color, Warm Assessment and Plan - Assessment and Plan (Free Text) Assessment: A 67 year old female who came in to the ER near syncopal episode. Patient reports that she was at her chiropractor's office earlier today and was unable to lift herself from the toilet in the bathroom secondary to weakness/dizziness. Patient reports that after trying several times, she fell off of the toilet. She claimed that she had fallen multiple times at home and recently fell again prior to admission and sustained right shoulder/arm pain. History of hypertension, hyperlipidemia, hypothyroidism, uncontrolled diabetes, diabetic neuropathy,chronic right foot wound. LLE third digit amputation,tonsillectomy. Code stroke was called in the ER but ruled out stroke. CT of head no bleeding/ unremarkable. Chest X ray of shoulder negative for fracture.Consult was called to evaluate near syncope. Rule out orthostatic hypotension. Will order orthostatic vital signs.No previous cardiac work up done at [facility]. Will order echo to evaluate LV function. Low dose Lovenox for DVT prophylaxis. Carotid studies pending. Yeast in urine.Urine culture gram positive cocci, Blood culture gram positive cocci, ID on consult. Uncontrolled glucose, Non-compliant with med ications. Uncontrolled blood pressure.Started on Cozaar. For stress test Saturday. Plan: for Stress test tomorrow Denies chest pain Echo done will follow up results. Orthostatic vital signs for hypotension Uncontrolled blood pressure, started Cozaar Continue IV fluids for hydration On ASA 81 mg daily, Lovenox 40 mg daily, Cozaar 50 mg BID Continue current treatment Continue current medications Continue IV antibiotics as ordered by ID ( gram positive cocci- blood culture) Glucose Control Continue IV antibiotics per ID Will follow up Plan and treatment discussed with Dr. Ayers
[2018-05-25] MEDS: Vancomycin 1gm in NS 250ml 1 GM/250 ML BAG IVPB SCH ×2 (10:19→21:35)
[2018-05-25] MEDS: Insulin Lispro (HUMAlog) HIGH Coverage SC SCH ×4 (10:20→22:37)
[2018-05-25] MEDS: Enoxaparin 40 mg Syringe SC SCH (10:21)
[2018-05-25] MEDS: Insulin Lispro (humaLOG) MIX 75/25(10 ml) SC SCH ×2 (10:21→18:20)
[2018-05-25] MEDS: cefTRIAXone 2 GM IN NS 2 GM/100 ML BAG IVPB SCH (10:31)
[2018-05-25] MEDS: Sodium Chloride 0.9% 1,000 ML IV SCH ×2 (10:32→21:35)
[2018-05-25] MEDS ORDERED: Potassium Chloride 20 mEq ER Tab PO ONE (11:06)
--- NOTE | 2018-05-25 11:54 | CT ---
Date of service: 05/25/2018 PROCEDURE: CT of the right shoulder without contrast HISTORY: r/o right shoulder septic joint COMPARISON: Comparison is made to the previous x-ray of the right shoulder dated 05/23/2018 TECHNIQUE: Axial and reformatted coronal and sagittal CT images of the right shoulder were obtained without IV contrast administration. FINDINGS: The assessment for possible septic arthritis is limited without IV contrast administration. No definite evidence of significant right shoulder joint effusion. There is no evidence of acute fracture or dislocation. [id number] osteoarthritic degenerative changes of the right shoulder are noted. There is focal soft tissue calcification adjacent to the right humerus head at the expected location of the rotator cuff tendon insertion suggestive of calcified tendinitis. Moderate degenerative changes noted at the cervical spine. There is small to moderate size posterior osteophyte bulging disc at C5-C6 and C6-C7 associated with spinal and neural foraminal narrowing. IMPRESSION: Limited assessment without IV contrast administration. No definite evidence of significant right knee joint effusion. Findings suggestive of calcified tendinitis. Moderate disc and endplate degenerative changes at the mid and lower cervical spine.
--- NOTE | 2018-05-25 12:40 | PN ---
DATE: 05/25/2018 SUBJECTIVE: The patient is seen earlier in room 277, bed 2. She is complaining of right shoulder pain, continues to have the temperatures in the downward trend. Her appetite is good. No abdominal pain. PHYSICAL EXAMINATION: VITAL SIGNS: Temperature is 98, blood pressure is 160/80, respiratory rate of 18, heart rate of 92. HEENT: Examination of HEENT is unremarkable. NECK: Supple. LUNGS: Have decreased breath sounds. HEART: Normal S1 and S2. ABDOMEN: Soft. EXTREMITIES: Tenderness in the right shoulder. She is unable to lift her right arm. LABORATORY EXAMINATION: Reveals a white count of 24,000. Chemistries reveal a BUN of 28, creatinine of 0.8. Urinalysis, 1 to 3 WBCs. Toxicology is reviewed. Microbiology reveals gram-positive cocci in multiple blood cultures and as is reported to be in chains. The patient had a shoulder x-ray, which shows normal joint. Dr. Flores's consultation is reviewed. Review of orders reveals the patient to be on vancomycin and ceftriaxone. ASSESSMENT AND PLAN: This is a 67-year-old female with history of diabetes who is status post trauma, now presenting with sepsis with gram-positive cocci in chains, bacteremia, must rule out underlying endocarditis, must rule out right shoulder septic joint. We will order a CAT scan of the joint this morning and the patient should have considered orthopedic aspiration of the right joint based on the CAT scan finding. From Infectious Disease point of view, the patient is on vancomycin, ceftriaxone, and rule out septic right shoulder, awaiting for an aspiration and CAT scan findings and should have an MRI. We will review the CAT scan this morning of the shoulder joint and make a decision based on CT scan finding. We will discuss this with Dr. Flores. Marvin West MD
--- NOTE | 2018-05-25 13:30 | PN ---
DATE: 05/25/2018 SUBJECTIVE: The patient has no complaints of any chest pain or shortness of breath, no headache, or dizziness. PHYSICAL EXAMINATION: VITAL SIGNS: Temperature is 98.7, pulse of 85, blood pressure 156/85, and respirations 19. GENERAL: The patient is lying in bed, flat, comfortable. HEENT: No oral lesion. Anicteric sclerae. Moist mucosa. NECK: No JVD, adenopathy, or thyromegaly. CARDIOVASCULAR: S1 and S2, regular. No murmurs, rubs, or gallops. LUNGS: Clear to auscultation bilaterally. No wheeze, rales, or rhonchi. ABDOMEN: Bowel sounds are positive, soft, nontender and nondistended. EXTREMITIES: No cyanosis, clubbing or edema. LABORATORY DATA: White count 24.1, hemoglobin 12.7. Creatine is 0.8, potassium 3.3, glucose is 306. ASSESSMENT: 1. Hypokalemia. 2. Diabetes type 2, uncontrolled. 3. Diabetic neuropathy. 4. Hypertension. 5. Hypothyroidism. 6. Peripheral arterial disease. 7. Chronic right foot wound. 8. Right shoulder pain secondary to bursitis. 9. Sepsis, secondary to gram-positive cocci. PLAN: The patient is on losartan for her hypertension. She is going to continue with aspirin for peripheral arterial disease. She is on insulin Lispro for her diabetes; insulin Lispro units before meals breakfast and dinner. Sugars remain elevated. Her last fingerstick was 271. I will increase her Lispro to 18 units. She is on Lovenox for DVT prophylaxis. She is on Rocephin for her sepsis. She is going to continue with IV fluids and normal saline. She is on vancomycin for her antibiotics. She has an MRI that has been ordered as well as a CT of the upper extremities to look at the right shoulder for any signs of a septic joint. A stress test has been ordered by Cardiology. We will replace her potassium; it is most likely low because of the uncontrolled diabetes. Her white count remains elevated at 24. She will have repeat blood work tomorrow. Farhad Blood MD
--- NOTE | 2018-05-25 14:28 | CP.PCM.CON ---
<Bro Cavanaugh - Last Filed: 05/25/18 23:02> History of Present Illness - History of Present Illness History of Present Illness: Podiatry Consult Note - Dr. Rondon 67F PMHx uncontrolled DM2 with diabetic neuropathy, HTN, HLD and hypothyroidism seen and evaluated at bedside for left foot wound. Patient admitted for near syncopal episode. Patient is well known to Dr. Rondon; follows up regularly in office on an outpatient basis. Patient states she has had the wound on the bottom of her left foot for years, denies any pain however reports she has decreased sensation in both feet. Patient denies seeing any drainage, pus, or signs of infection around wound site. Denies n/v/f/d/c/sob/crowe/cp. Review of Systems - Review of Systems All systems: reviewed and no additional remarkable complaints except (as per HPI) Past Patient History - Infectious Disease Hx of Infectious Diseases: None - Past Social History Smoking Status: Never Smoked - CARDIAC Hx Cardiac Disorders: Yes Hx Peripheral Edema: Yes (ble +1) - PULMONARY Hx Respiratory Disorders: No - NEUROLOGICAL Hx Neurological Disorder: No - HEENT Hx HEENT Problems: No - RENAL Hx Chronic Kidney Disease: No - ENDOCRINE/METABOLIC Hx Endocrine Disorders: Yes Hx Diabetes Mellitus Type 2: Yes - HEMATOLOGICAL/ONCOLOGICAL Hx Blood Disorders: No - INTEGUMENTARY Hx Dermatological Problems: Yes Other/Comment: right 2nd toe missing nail toenails dry thick cracked both feet, left ankle bruises, discolorred b/l feet, amputation of left foot 3rd toe, non healing dry brown wound bottom left foot dressing done by dr rondon every 2 weeks, multiple small brown skin spots ble, dry skin both feet - MUSCULOSKELETAL/RHEUMATOLOGICAL Hx Falls: Yes (fell 4 days ago and today) - GASTROINTESTINAL Hx Gastrointestinal Disorders: Yes (obese) - GENITOURINARY/GYNECOLOGICAL Hx Genitourinary Disorders: No - PSYCHIATRIC Hx Psychophysiologic Disorder: No - SURGICAL HISTORY Hx Amputation: Yes (THIRD LEFT TOE) Other/Comment: left third toe amputation. , tonsillectomy - ANESTHESIA Hx Anesthesia: No Meds Allergies/Adverse Reactions: Allergies Allergy/AdvReac Type Severity Reaction Status Date / Time No Known Allergies Allergy Verified 06/30/17 17:25 - Medications Medications: Current Medications Aspirin (Ecotrin) 81 mg PO DAILY [facility] Last Admin: 05/25/18 10:22 Dose: 81 mg Enoxaparin Sodium (Lovenox) 40 mg SC DAILY [facility]; Protocol Last Admin: 05/25/18 10:21 Dose: 40 mg Sodium Chloride (Sodium Chloride 0.9%) 1,000 mls @ 100 mls/hr IV .Q10H [facility] Last Admin: 05/25/18 10:32 Dose: 100 mls/hr Vancomycin HCl (Vancomycin 1gm) 1 gm in 250 mls @ 167 mls/hr IVPB Q12H [facility]; Protocol Last Admin: 05/25/18 10:19 Dose: 167 mls/hr Ceftriaxone Sodium (Rocephin 2 Gm Ivpb) 2 gm in 100 mls @ 100 mls/hr IVPB DAILY [facility]; Protocol Stop: 06/02/18 10:16 Last Admin: 05/25/18 10:31 Dose: 100 mls/hr Insulin Human Lispro (Humalog High) 0 units SC ACHS [facility]; Protocol Last Admin: 05/25/18 11:47 Dose: 10 units Insulin Lispro Protam/Lispro Human (Humalog Mix 75/25) 18 units SC ACBD [facility] Losartan Potassium (Cozaar) 50 mg PO Q12 [facility] Last Admin: 05/25/18 11:41 Dose: 50 mg Mupirocin (Bactroban Ointment) 0 gm NS BID [facility] Stop: 05/30/18 10:01 Physical Exam - Constitutional Appears: Non-toxic, No Acute Distress - Extremities Exam Additional comments: VASC: DP and PT pulses palpable 2/4 b/l. CFT <3 seconds to digits. Temperature gradient warm to warm b/l. Perimalleolar edema present b/l. NEURO: Light touch and protective sensation diminished bilaterally. DERM: Full thickness ulceration measuring approximately 0.2 x 0.2 x 0.3 cm - ulcer noted to have a 100% granular base and hyperkeratotic rim; malodor present; minimal sanguinous drainage present; no purulence; no fluctuance; undermining present laterally. ORTHO: s/p left 3rd digit amputation. No pain on palpation noted to wound. - Neurological Exam Neurological exam: Alert, Oriented x3 - Psychiatric Exam Psychiatric exam: Normal Affect, Normal Mood Results - Vital Signs Recent Vital Signs: Last Vital Signs Temp 98.7 F 05/25/18 06:00 Pulse 92 H 05/25/18 12:00 Resp 18 05/25/18 12:00 BP 182/68 H 05/25/18 12:00 Pulse Ox 95 05/25/18 06:00 - Labs Result Diagrams: 05/24/18 07:30 05/24/18 07:30 Labs: Laboratory Results - last 24 hr 05/23/18 05/24/18 05/24/18 13:50 07:00 16:10 POC Glucose (mg/dL) 271 H Hemoglobin A1c 9.8 H C-Reactive Protein 437.30 H Assessment & Plan - Assessment and Plan (Free Text) Assessment: 67F PMHx uncontrolled DM2 with diabetic neuropathy, HTN, HLD and hypothyroidism with left plantar foot ulceration Plan: Patient seen and evaluated Discussed with attending, Dr. Rondon Afebrile Wound cleansed with saline and dressed with DSD Continue abx per ID Podiatry will continue to follow <Vilma Rondon - Last Filed: 05/26/18 08:02> Meds - Medications Medications: Current Medications Aspirin (Ecotrin) 81 mg PO DAILY [facility] Last Admin: 05/25/18 10:22 Dose: 81 mg Enoxaparin Sodium (Lovenox) 40 mg SC DAILY [facility]; Protocol Last Admin: 05/25/18 10:21 Dose: 40 mg Sodium Chloride (Sodium Chloride 0.9%) 1,000 mls @ 100 mls/hr IV .Q10H [facility] Last Admin: 05/26/18 06:19 Dose: 100 mls/hr Vancomycin HCl (Vancomycin 1gm) 1 gm in 250 mls @ 167 mls/hr IVPB Q12H [facility]; Protocol Last Admin: 05/25/18 21:35 Dose: 167 mls/hr Ceftriaxone Sodium (Rocephin 2 Gm Ivpb) 2 gm in 100 mls @ 100 mls/hr IVPB DAILY [facility]; Protocol Stop: 06/02/18 10:16 Last Admin: 05/25/18 10:31 Dose: 100 mls/hr Insulin Human Lispro (Humalog High) 0 units SC ACHS [facility]; Protocol Last Admin: 05/25/18 22:37 Dose: Not Given Insulin Lispro Protam/Lispro Human (Humalog Mix 75/25) 18 units SC ACBD [facility] Last Admin: 05/25/18 18:20 Dose: 18 units Losartan Potassium (Cozaar) 50 mg PO Q12 [facility] Last Admin: 05/25/18 21:35 Dose: 50 mg Mupirocin (Bactroban Ointment) 0 gm TOP BID [facility] Last Admin: 05/25/18 18:17 Dose: 1 applic Results - Vital Signs Recent Vital Signs: Last Vital Signs Temp 97.9 F 05/26/18 06:00 Pulse 71 05/26/18 06:00 Resp 19 05/26/18 06:00 BP 155/81 H 05/26/18 06:00 Pulse Ox 97 05/26/18 06:00 - Labs Result Diagrams: 05/24/18 07:30 05/26/18 06:50 Labs: Laboratory Results - last 24 hr 05/23/18 05/25/18 05/25/18 13:50 07:30 11:27 Sodium Potassium Chloride Carbon Dioxide Anion Gap BUN Creatinine Est GFR ( Amer) Est GFR (Non-Af Amer) POC Glucose (mg/dL) 288 H 320 H Random Glucose Hemoglobin A1c 9.8 H Calcium Phosphorus Magnesium Total Bilirubin AST ALT Alkaline Phosphatase Total Protein Albumin Globulin Albumin/Globulin Ratio 05/25/18 05/25/18 05/26/18 16:36 21:47 06:50 Sodium 135 Potassium 4.2 Chloride 108 H Carbon Dioxide 23 Anion Gap 8 L BUN 28 H Creatinine 0.8 Est GFR ( Amer) > 60 Est GFR (Non-Af Amer) > 60 POC Glucose (mg/dL) 248 H 166 H Random Glucose 216 H Hemoglobin A1c Calcium 8.2 L Phosphorus 3.1 Magnesium 2.1 Total Bilirubin 0.3 AST 38 H D ALT 38 Alkaline Phosphatase 121 Total Protein 5.8 Albumin 2.5 L Globulin 3.3 Albumin/Globulin Ratio 0.8 L
--- NOTE | 2018-05-25 17:36 | PN ---
DATE: 05/25/2018 LOCATION: Room 277, bed 2. SUBJECTIVE: The patient is still unable to be given a cortisone shot because her blood sugar is still quite high. PLAN: We will wait for Dr. Shaikh to get her permission to give her cortisone shot in the right shoulder to help her bursitis pain. A CAT scan which was done, does not show any fractures or evidence of fluid distention in the shoulder, but she has to be with less blood sugars, so I can give her cortisone shot, that in itself elevates the blood sugar. So I will just be standing by to the inflammatory processes, lest that is raising the blood sugar and a white count. Armando Flores DO
[2018-05-25] MEDS ORDERED: Mupirocin 2% Ointment 15 GM TUBE TOP SCH ×2 (18:00)
[2018-05-25] MEDS ORDERED: Mupirocin 2% Ointment 15 GM TUBE NS SCH (18:00)
[2018-05-25] MEDS: Mupirocin 2% Ointment 15 GM TUBE TOP SCH (18:17)
[2018-05-26] MEDS: Sodium Chloride 0.9% 1,000 ML IV SCH ×3 (06:19→22:53)
--- NOTE | 2018-05-26 07:17 | CP.PCM.PN ---
Subjective - Date & Time of Evaluation Date of Evaluation: 05/26/18 Time of Evaluation: 06:25 - Subjective Subjective: Lying in bed, No distress, awake, Reason for consultation: Cardiac evaluation of near syncope, History of hypertension, hyperlipidemia, hypothyroidism, uncontrolled diabetes, diabetic neuropathy, LLE third digit amputation,tonsillectomy Seen and examined by me and Dr. Ayers Objective - Vital Signs/Intake and Output Vital Signs (last 24 hours): Temp Pulse Resp BP Pulse Ox 97.9 F 71 19 155/81 H 97 05/26/18 06:00 05/26/18 06:00 05/26/18 06:00 05/26/18 06:00 05/26/18 06:00 Intake and Output: 05/26/18 05/26/18 06:59 18:59 Intake Total 850 Output Total 400 Balance 450 - Medications Medications: Current Medications Aspirin (Ecotrin) 81 mg PO DAILY [facility] Last Admin: 05/25/18 10:22 Dose: 81 mg Enoxaparin Sodium (Lovenox) 40 mg SC DAILY [facility]; Protocol Last Admin: 05/25/18 10:21 Dose: 40 mg Sodium Chloride (Sodium Chloride 0.9%) 1,000 mls @ 100 mls/hr IV .Q10H [facility] Last Admin: 05/26/18 06:19 Dose: 100 mls/hr Vancomycin HCl (Vancomycin 1gm) 1 gm in 250 mls @ 167 mls/hr IVPB Q12H [facility]; Protocol Last Admin: 05/25/18 21:35 Dose: 167 mls/hr Ceftriaxone Sodium (Rocephin 2 Gm Ivpb) 2 gm in 100 mls @ 100 mls/hr IVPB DAILY [facility]; Protocol Stop: 06/02/18 10:16 Last Admin: 05/25/18 10:31 Dose: 100 mls/hr Insulin Human Lispro (Humalog High) 0 units SC ACHS [facility]; Protocol Last Admin: 05/25/18 22:37 Dose: Not Given Insulin Lispro Protam/Lispro Human (Humalog Mix 75/25) 18 units SC ACBD [facility] Last Admin: 05/25/18 18:20 Dose: 18 units Losartan Potassium (Cozaar) 50 mg PO Q12 [facility] Last Admin: 05/25/18 21:35 Dose: 50 mg Mupirocin (Bactroban Ointment) 0 gm TOP BID [facility] Last Admin: 05/25/18 18:17 Dose: 1 applic - Labs Labs: 05/24/18 07:30 05/24/18 07:30 PT 14.0 SECONDS (9.4-12.5) H 05/23/18 13:50 INR 1.26 05/23/18 13:50 APTT 30.5 Seconds (26.9-38.3) 05/23/18 13:50 - Constitutional Appears: Non-toxic, No Acute Distress - Head Exam Head Exam: NORMAL INSPECTION, NORMOCEPHALIC - Eye Exam Eye Exam: Normal appearance - ENT Exam ENT Exam: Mucous Membranes Moist, Normal Exam - Respiratory Exam Respiratory Exam: Decreased Breath Sounds, Clear to Ausculation Bilateral, NORMAL BREATHING PATTERN - Cardiovascular Exam Cardiovascular Exam: REGULAR RHYTHM, +S1, +S2 - GI/Abdominal Exam GI & Abdominal Exam: Soft, Normal Bowel Sounds - Extremities Exam Additional comments: right foot dressing - Neurological Exam Neurological Exam: Alert, Awake - Psychiatric Exam Psychiatric exam: Normal Affect, Normal Mood - Skin Skin Exam: Dry, Normal Color, Warm Assessment and Plan - Assessment and Plan (Free Text) Assessment: A 67 year old female who came in to the ER near syncopal episode. Patient reports that she was at her chiropractor's office earlier today and was unable to lift herself from the toilet in the bathroom secondary to weakness/dizziness. Patient reports that after trying several times, she fell off of the toilet. She claimed that she had fallen multiple times at home and recently fell again prior to admission and sustained right shoulder/arm pain. History of hypertension, hyperlipidemia, hypothyroidism, uncontrolled diabetes, diabetic neuropathy,chronic right foot wound. LLE third digit amputation,tonsillectomy. Code stroke was called in the ER but ruled out stroke. CT of head no bleeding/ unremarkable. Chest X ray of shoulder negative for fracture.Consult was called to evaluate near syncope. Rule out orthostatic hypotension. Will order orthostatic vital signs.No previous cardiac work up done at [facility] [place]. Will order echo to evaluate LV function. Low dose Lovenox for DVT prophylaxis. Carotid studies pending. Yeast in urine.Urine culture gram positive cocci, Blood culture gram po sitive cocci, ID on consult. Uncontrolled glucose, Non-compliant with medications. Uncontrolled blood pressure.On Cozaar. Schedule for stress test today but refusing. Plan: Scheduled for Stress test today but patient refusing Refused Echocardiogram Heart rate controlled Blood pressure stable Will discontinue telemetry Continue IV fluids for hydration On ASA 81 mg daily, Lovenox 40 mg daily, Cozaar 50 mg BID Continue current treatment Continue current medications Continue IV antibiotics as ordered by ID (gram positive cocci- blood culture) Glucose Control Will follow up Plan and treatment discussed with Dr. Ayers
[2018-05-26 07:59] LABS: ALB/GLOB RATIO 0.8 (1.1-1.8); ALBUMIN 2.5 g/dL (3.0-4.8); ALT/SGPT 38 U/L (7-56); AST/SGOT 38 U/L (14-36); BLOOD UREA NITROGEN 28 mg/dL (7-21); CALCIUM 8.2 mg/dL (8.4-10.5); GFR NON-AFRICAN AMERICAN > 60
--- NOTE | 2018-05-26 08:41 | PN ---
DATE: 05/24/2018 SUBJECTIVE: The patient is 67 years old, seen and examined. The patient states although she felt sick yesterday, but she actually has not been feeling well for the last two weeks. She took some salad from [employer], since then, she has some abdominal discomfort, cramps. She has been suffering from this right shoulder pain for long time. She went to the chiropractor to get adjustment, and over there, she felt very weak as if she cannot get out of the toilet bowl and she fell and she was brought to emergency room. Code stroke was called, but CT scan of the brain was negative for any acute event. So the patient was admitted for further management. PHYSICAL EXAMINATION: GENERAL: On examination today, she states she still feels weak, tired. VITAL SIGNS: She is afebrile, pulse 87, respirations 18, blood pressure 141/51. LUNGS: Bilateral fair airflow. No rhonchi or crackles. HEART: S1 and S2 audible. ABDOMEN: Soft and nontender. No rebound, no guarding. NEUROLOGIC: The patient is awake, alert, oriented, communicative. Moves all extremities except right shoulder. She has very limited movement. Left foot is in the dressing; right foot has no improvements. LABORATORY EXAM: WBC 24.1, hemoglobin 12, hematocrit 37, and platelet 408. Chemistry: Sodium 134, potassium 3.3, chloride 98, CO2 of 21, BUN 28, creatinine 0.8, and blood sugar 305. Blood culture positive for gram-positive cocci. Urine cultures are pending. CT of the head and neck is negative. CT of the brain is negative. X-ray of the right shoulder, normal radiograph of the right shoulder. ASSESSMENT AND PLAN: 1. Near syncope. 2. Bacteremia. 3. Left foot wound. 4. History of hypertension. 5. Noncompliance. 6. Bacteremia and positive gram-positive cocci. So plan is, the patient is currently on intravenous antibiotic. She is on losartan. She is on aspirin. Blood sugar is being monitored. I will increase her insulin coverage since her blood sugar is running high. Other consultants are also seeing the patient, we will discuss with them. Today, her potassium has been supplemented. The patient is currently on vanco and Rocephin. Echocardiogram has been ordered. The patient's blood sugar will be monitored. Follow up patient on Saturday. Ana Shaikh MD
--- NOTE | 2018-05-26 10:07 | CP.PCM.PN ---
Subjective - Date & Time of Evaluation Date of Evaluation: 05/26/18 Time of Evaluation: 10:02 - Subjective Subjective: Podiatry progress note for Dr. Rondon 67F seen and evaluated at bedside this AM with Dr. Rondon for left foot wounds and abscess. States that she has no pain to her foot however she complains of significant pain in her right shoulder. Denies N/V/F/C/SOB/CP and has no other acute complaints. Objective - Vital Signs/Intake and Output Vital Signs (last 24 hours): Temp Pulse Resp BP Pulse Ox 97.9 F 71 19 155/81 H 97 05/26/18 06:00 05/26/18 06:00 05/26/18 06:00 05/26/18 06:00 05/26/18 06:00 Intake and Output: 05/26/18 05/26/18 06:59 18:59 Intake Total 850 Output Total 400 Balance 450 - Medications Medications: Current Medications Aspirin (Ecotrin) 81 mg PO DAILY [facility] Last Admin: 05/25/18 10:22 Dose: 81 mg Enoxaparin Sodium (Lovenox) 40 mg SC DAILY [facility]; Protocol Last Admin: 05/25/18 10:21 Dose: 40 mg Sodium Chloride (Sodium Chloride 0.9%) 1,000 mls @ 100 mls/hr IV .Q10H [facility] Last Admin: 05/26/18 06:19 Dose: 100 mls/hr Vancomycin HCl (Vancomycin 1gm) 1 gm in 250 mls @ 167 mls/hr IVPB Q12H [facility]; Protocol Last Admin: 05/25/18 21:35 Dose: 167 mls/hr Ceftriaxone Sodium (Rocephin 2 Gm Ivpb) 2 gm in 100 mls @ 100 mls/hr IVPB DAILY [facility]; Protocol Stop: 06/02/18 10:16 Last Admin: 05/25/18 10:31 Dose: 100 mls/hr Insulin Human Lispro (Humalog High) 0 units SC ACHS [facility]; Protocol Last Admin: 05/25/18 22:37 Dose: Not Given Insulin Lispro Protam/Lispro Human (Humalog Mix 75/25) 18 units SC ACBD [facility] Last Admin: 05/25/18 18:20 Dose: 18 units Losartan Potassium (Cozaar) 50 mg PO Q12 [facility] Last Admin: 05/25/18 21:35 Dose: 50 mg Mupirocin (Bactroban Ointment) 0 gm TOP BID [facility] Last Admin: 05/25/18 18:17 Dose: 1 applic - Labs Labs: 05/24/18 07:30 05/26/18 06:50 PT 14.0 SECONDS (9.4-12.5) H 05/23/18 13:50 INR 1.26 05/23/18 13:50 APTT 30.5 Seconds (26.9-38.3) 05/23/18 13:50 - Constitutional Appears: Non-toxic, No Acute Distress - Head Exam Head Exam: ATRAUMATIC, NORMOCEPHALIC - Extremities Exam Additional comments: VASC: DP and PT pulses palpable 2/4 b/l. CFT <3 seconds to digits. Temperature gradient warm to warm b/l. Perimalleolar edema present b/l. NEURO: Light touch and protective sensation diminished bilaterally. 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 No pain on palpation noted to wound. - Neurological Exam Neurological Exam: Alert, Awake, Oriented x3 - Psychiatric Exam Psychiatric exam: Normal Affect, Normal Mood Assessment and Plan - Assessment and Plan (Free Text) Assessment: 67F with left plantar foot ulceration and left foot abscess Plan: Patient seen and evaluated with Dr. Rondon Afebrile, WBC 24.1 (05/24) Plantar wound cleansed with saline and dressed with optifoam; abscess opened with sterile scissor and revealed 1 cc of pus and purulent drainage, cleansed with sterile saline and dressed with optifoam Wound cx left foot- pending Continue abx per ID Podiatry will continue to follow
[2018-05-26] MEDS: Mupirocin 2% Ointment 15 GM TUBE TOP SCH ×2 (10:48→18:22)
[2018-05-26] MEDS: Insulin Lispro (HUMAlog) HIGH Coverage SC SCH ×4 (10:49→22:26)
[2018-05-26] MEDS: Insulin Lispro (humaLOG) MIX 75/25(10 ml) SC SCH ×2 (10:50→18:19)
[2018-05-26] MEDS: Enoxaparin 40 mg Syringe SC SCH (10:50)
[2018-05-26] MEDS: cefTRIAXone 2 GM IN NS 2 GM/100 ML BAG IVPB SCH (10:51)
[2018-05-26] MEDS: Vancomycin 1gm in NS 250ml 1 GM/250 ML BAG IVPB SCH ×2 (13:42→22:25)
--- NOTE | 2018-05-26 14:20 | CP.PCM.PN ---
<Catalina Hammond - Last Filed: 05/26/18 15:40> Subjective - Date & Time of Evaluation Date of Evaluation: 05/26/18 Time of Evaluation: 09:00 - Subjective Subjective: PGY-3 Neurology Progress note for Dr. Reynolds service Patient seen and examined at bedside. No acute distress. She continues to report pain in her right shoulder. No headache, dizziness, weakness. Patient is anxious for MRI. no other complaints. Objective - Vital Signs/Intake and Output Vital Signs (last 24 hours): Temp Pulse Resp BP Pulse Ox 98 F 75 18 161/84 H 97 05/26/18 12:00 05/26/18 12:00 05/26/18 12:00 05/26/18 12:00 05/26/18 06:00 Intake and Output: 05/26/18 05/26/18 06:59 18:59 Intake Total 850 Output Total 400 Balance 450 - Medications Medications: Current Medications Aspirin (Ecotrin) 81 mg PO DAILY [facility] Last Admin: 05/26/18 10:48 Dose: 81 mg Enoxaparin Sodium (Lovenox) 40 mg SC DAILY [facility]; Protocol Last Admin: 05/26/18 10:50 Dose: 40 mg Sodium Chloride (Sodium Chloride 0.9%) 1,000 mls @ 100 mls/hr IV .Q10H [facility] Last Admin: 05/26/18 10:51 Dose: 100 mls/hr Vancomycin HCl (Vancomycin 1gm) 1 gm in 250 mls @ 167 mls/hr IVPB Q12H [facility]; Protocol Last Admin: 05/26/18 13:42 Dose: 167 mls/hr Ceftriaxone Sodium (Rocephin 2 Gm Ivpb) 2 gm in 100 mls @ 100 mls/hr IVPB DAILY [facility]; Protocol Stop: 06/02/18 10:16 Last Admin: 05/26/18 10:51 Dose: 100 mls/hr Insulin Human Lispro (Humalog High) 0 units SC ACHS [facility]; Protocol Last Admin: 05/26/18 11:30 Dose: Not Given Insulin Lispro Protam/Lispro Human (Humalog Mix 75/25) 18 units SC ACBD [facility] Last Admin: 05/26/18 10:50 Dose: 18 units Losartan Potassium (Cozaar) 50 mg PO Q12 [facility] Last Admin: 05/26/18 10:48 Dose: 50 mg Mupirocin (Bactroban Ointment) 0 gm TOP BID [facility] Last Admin: 05/26/18 10:48 Dose: 1 applic - Labs Labs: 05/24/18 07:30 05/26/18 06:50 PT 14.0 SECONDS (9.4-12.5) H 05/23/18 13:50 INR 1.26 05/23/18 13:50 APTT 30.5 Seconds (26.9-38.3) 05/23/18 13:50 - Additional Findings Additional findings: - Constitutional Appears: No Acute Distress - Head Exam Head Exam: ATRAUMATIC, NORMOCEPHALIC - Eye Exam Eye Exam: EOMI, Normal appearance, PERRL. absent: Conjunctival injection, Nystagmus, Periorbital swelling, Periorbital tenderness, Scleral icterus Pupil Exam: NORMAL ACCOMODATION - Respiratory Exam Respiratory Exam: NORMAL BREATHING PATTERN - Cardiovascular Exam Cardiovascular Exam: REGULAR RHYTHM - GI/Abdominal Exam GI & Abdominal Exam: Normal Bowel Sounds, Soft. absent: Tenderness - Neurological Exam Neurological exam: Alert, CN II-XII Intact, Oriented x3, Reflexes Normal - Expanded Neurological Exam Expanded Patient oriented to: person, place, time Cranial nerves: EOM's Intact: Normal, Facial Palsey w/Forehead Movement: Normal, Facial Palsey w/o Forehead Movement: Normal, Nystagmus: Normal, Tongue Deviation: Normal Cerebellar Function: Finger to Nose: Normal Sensory exam: Lower Extremity Light Touch: Normal, Upper Extremity Light Touch: Normal Neuro motor strength exam: Left Upper Extremity: 5, Right Upper Extremity: 0 (Unable to test this extremity 2/2 right shoulder pain), Left Lower Extremity: 5, Right Lower Extremity: 5 Coma Scale Eye Opening: SPONTANEOUS Coma Scale Motor Response: OBEYS COMMANDS Coma Scale Verbal: Oriented Coma Scale Total: 15 - Psychiatric Exam Psychiatric exam: Normal Affect, Normal Mood - Skin Skin Exam: Dry, Warm - Extremities Extremity exam: Right shoulder tender with palpitation and movement Assessment and Plan - Assessment and Plan (Free Text) Assessment: 67 year old female with a past medical history significant for uncontrolled DM2 with diabetic neuropathy, HTN, HLD and hypothyroidism who presented after a near syncopal episode. 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 Reynolds Patient seen and assessed with attending, Dr. Reynolds. <RodolfoAlexandrshirley - Last Filed: 05/26/18 23:48> Objective - Vital Signs/Intake and Output Vital Signs (last 24 hours): Temp Pulse Resp BP Pulse Ox 98.3 F 77 18 153/83 H 97 05/26/18 17:17 05/26/18 17:17 05/26/18 17:17 05/26/18 17:17 05/26/18 06:00 Intake and Output: 05/26/18 05/27/18 18:59 06:59 Intake Total 1260 Output Total 550 Balance 710 - Medications Medications: Current Medications Aspirin (Ecotrin) 81 mg PO DAILY [facility] Last Admin: 05/26/18 10:48 Dose: 81 mg Enoxaparin Sodium (Lovenox) 40 mg SC DAILY [facility]; Protocol Last Admin: 05/26/18 10:50 Dose: 40 mg Sodium Chloride (Sodium Chloride 0.9%) 1,000 mls @ 100 mls/hr IV .Q10H [facility] Last Admin: 05/26/18 22:53 Dose: Not Given Vancomycin HCl (Vancomycin 1gm) 1 gm in 250 mls @ 167 mls/hr IVPB Q12H [facility]; Protocol Last Admin: 05/26/18 22:25 Dose: 167 mls/hr Ceftriaxone Sodium (Rocephin 2 Gm Ivpb) 2 gm in 100 mls @ 100 mls/hr IVPB DAILY [facility]; Protocol Stop: 06/02/18 10:16 Last Admin: 05/26/18 10:51 Dose: 100 mls/hr Insulin Human Lispro (Humalog High) 0 units SC ACHS [facility]; Protocol Last Admin: 05/26/18 22:26 Dose: Not Given Insulin Lispro Protam/Lispro Human (Humalog Mix 75/25) 18 units SC ACBD [facility] Last Admin: 05/26/18 18:19 Dose: 18 units Losartan Potassium (Cozaar) 50 mg PO Q12 [facility] Last Admin: 05/26/18 22:25 Dose: 50 mg Mupirocin (Bactroban Ointment) 0 gm TOP BID [facility] Last Admin: 05/26/18 18:22 Dose: 1 applic - Labs Labs: 05/24/18 07:30 05/26/18 06:50 PT 14.0 SECONDS (9.4-12.5) H 05/23/18 13:50 INR 1.26 05/23/18 13:50 APTT 30.5 Seconds (26.9-38.3) 05/23/18 13:50 Assessment and Plan - Assessment and Plan (Free Text) Assessment: 67 yr old woman who I feel had a syncopal spell secondary to metabolic issues, with NIHSS of 0. She cannot tolerate MRI Brain at this point. We have encouraged weight loss, exercise and medical management and aspirin. I examined the patient independently and with the resident and formulated the assessment and plan. All medical record entries made by the Resident were at my direction and perso soo dictated by me. I have reviewed the chart and agree that the record accurately reflects my personal performance of the history, physical exam, medical decision making, and the department course for this patient. I have also personally directed, reviewed, and agree with the discharge instructions and disposition. Dr. Reynolds Neurology
--- NOTE | 2018-05-26 15:10 | CP.PCM.PN ---
Subjective - Date & Time of Evaluation Date of Evaluation: 05/26/18 Time of Evaluation: 14:35 - Subjective Subjective: Still with right shoulder pain but seen patient with Dr. Flores and he will be giving steroid injection into the right shoulder joint, no fevers this morning, no diarrhea, no foot pain, but Dr. Rondon drained pus from the left fo ot. Objective - Vital Signs/Intake and Output Vital Signs (last 24 hours): Temp Pulse Resp BP Pulse Ox 98 F 75 18 161/84 H 97 05/26/18 12:00 05/26/18 12:00 05/26/18 12:00 05/26/18 12:00 05/26/18 06:00 Intake and Output: 05/26/18 05/26/18 06:59 18:59 Intake Total 850 Output Total 400 Balance 450 - Medications Medications: Current Medications Aspirin (Ecotrin) 81 mg PO DAILY [facility] Last Admin: 05/26/18 10:48 Dose: 81 mg Enoxaparin Sodium (Lovenox) 40 mg SC DAILY [facility]; Protocol Last Admin: 05/26/18 10:50 Dose: 40 mg Sodium Chloride (Sodium Chloride 0.9%) 1,000 mls @ 100 mls/hr IV .Q10H [facility] Last Admin: 05/26/18 10:51 Dose: 100 mls/hr Vancomycin HCl (Vancomycin 1gm) 1 gm in 250 mls @ 167 mls/hr IVPB Q12H [facility]; Protocol Last Admin: 05/26/18 13:42 Dose: 167 mls/hr Ceftriaxone Sodium (Rocephin 2 Gm Ivpb) 2 gm in 100 mls @ 100 mls/hr IVPB DAILY [facility]; Protocol Stop: 06/02/18 10:16 Last Admin: 05/26/18 10:51 Dose: 100 mls/hr Insulin Human Lispro (Humalog High) 0 units SC ACHS [facility]; Protocol Last Admin: 05/26/18 11:30 Dose: Not Given Insulin Lispro Protam/Lispro Human (Humalog Mix 75/25) 18 units SC ACBD [facility] Last Admin: 05/26/18 10:50 Dose: 18 units Losartan Potassium (Cozaar) 50 mg PO Q12 [facility] Last Admin: 05/26/18 10:48 Dose: 50 mg Mupirocin (Bactroban Ointment) 0 gm TOP BID [facility] Last Admin: 05/26/18 10:48 Dose: 1 applic - Labs Labs: 05/24/18 07:30 05/26/18 06:50 PT 14.0 SECONDS (9.4-12.5) H 05/23/18 13:50 INR 1.26 05/23/18 13:50 APTT 30.5 Seconds (26.9-38.3) 05/23/18 13:50 - Constitutional Appears: Chronically Ill - Head Exam Head Exam: NORMAL INSPECTION - Neck Exam Neck Exam: absent: Meningismus - Respiratory Exam Respiratory Exam: Decreased Breath Sounds - Cardiovascular Exam Cardiovascular Exam: +S1, +S2 - GI/Abdominal Exam GI & Abdominal Exam: Soft. absent: Tenderness - Extremities Exam Additional comments: left foot with dressings in place Assessment and Plan - Assessment and Plan (Free Text) Plan: Assessment Sepsis due to Group B strep bacteremia, consider due to left foot skin and skin structure infection with abscess S/P bedside I and D, R/O osteomyelitis probable right shoulder acromial bursitis DM morbid obesity with BMI 42 Plan Follow up cultures from the abscess; MRI ordered by Podiatry - discussed with Dr. Rondon patient to get steroid injection into the right shoulder joint - discussed with Dr. Flores continue Vancomycin and Rocephin for now will monitor clinically
--- NOTE | 2018-05-27 07:18 | CP.PCM.PN ---
Subjective - Date & Time of Evaluation Date of Evaluation: 05/27/18 Time of Evaluation: 06:30 - Subjective Subjective: Lying in bed, No distress, awake,alert Reason for consultation: Cardiac evaluation of near syncope, History of hypertension, hyperlipidemia, hypothyroidism, uncontrolled diabetes, diabetic neuropathy, LLE third digit amputation,tonsillectomy Seen and examined by me and Dr. Ayers Objective - Vital Signs/Intake and Output Vital Signs (last 24 hours): Temp Pulse Resp BP Pulse Ox 98.5 F 99 H 18 167/78 H 98 05/27/18 06:00 05/27/18 06:00 05/27/18 06:00 05/27/18 06:00 05/27/18 06:00 Intake and Output: 05/27/18 05/27/18 06:59 18:59 Intake Total 800 Output Total 700 Balance 100 - Medications Medications: Current Medications Aspirin (Ecotrin) 81 mg PO DAILY [facility] Last Admin: 05/26/18 10:48 Dose: 81 mg Enoxaparin Sodium (Lovenox) 40 mg SC DAILY [facility]; Protocol Last Admin: 05/26/18 10:50 Dose: 40 mg Sodium Chloride (Sodium Chloride 0.9%) 1,000 mls @ 100 mls/hr IV .Q10H [facility] Last Admin: 05/26/18 22:53 Dose: Not Given Vancomycin HCl (Vancomycin 1gm) 1 gm in 250 mls @ 167 mls/hr IVPB Q12H [facility]; Protocol Last Admin: 05/26/18 22:25 Dose: 167 mls/hr Ceftriaxone Sodium (Rocephin 2 Gm Ivpb) 2 gm in 100 mls @ 100 mls/hr IVPB DAILY [facility]; Protocol Stop: 06/02/18 10:16 Last Admin: 05/26/18 10:51 Dose: 100 mls/hr Insulin Human Lispro (Humalog High) 0 units SC ACHS [facility]; Protocol Last Admin: 05/26/18 22:26 Dose: Not Given Insulin Lispro Protam/Lispro Human (Humalog Mix 75/25) 18 units SC ACBD [facility] Last Admin: 05/26/18 18:19 Dose: 18 units Losartan Potassium (Cozaar) 50 mg PO Q12 [facility] Last Admin: 05/26/18 22:25 Dose: 50 mg Mupirocin (Bactroban Ointment) 0 gm TOP BID [facility] Last Admin: 05/26/18 18:22 Dose: 1 applic - Labs Labs: 05/24/18 07:30 05/26/18 06:50 PT 14.0 SECONDS (9.4-12.5) H 05/23/18 13:50 INR 1.26 05/23/18 13:50 APTT 30.5 Seconds (26.9-38.3) 05/23/18 13:50 - Constitutional Appears: Non-toxic, No Acute Distress - Head Exam Head Exam: NORMAL INSPECTION, NORMOCEPHALIC - Eye Exam Eye Exam: Normal appearance Pupil Exam: NORMAL ACCOMODATION - ENT Exam ENT Exam: Mucous Membranes Moist, Normal Exam - Respiratory Exam Respiratory Exam: Decreased Breath Sounds, Clear to Ausculation Bilateral, NORMAL BREATHING PATTERN - Cardiovascular Exam Cardiovascular Exam: +S1, +S2 - GI/Abdominal Exam GI & Abdominal Exam: Soft, Normal Bowel Sounds - Neurological Exam Neurological Exam: Alert, Awake, Oriented x3 - Psychiatric Exam Psychiatric exam: Normal Affect, Normal Mood - Skin Skin Exam: Dry, Normal Color, Warm Assessment and Plan - Assessment and Plan (Free Text) Assessment: A 67 year old female who came in to the ER near syncopal episode. Patient reports that she was at her chiropractor's office earlier today and was unable to lift herself from the toilet in the bathroom secondary to weakness/dizziness. Patient reports that after trying several times, she fell off of the toilet. She claimed that she had fallen multiple times at home and recently fell again prior to admission and sustained right shoulder/arm pain. History of hypertension, hyperlipidemia, hypothyroidism, uncontrolled diabetes, diabetic neuropathy,chronic right foot wound. LLE third digit amputation,tonsillectomy. Code stroke was called in the ER but ruled out stroke. CT of head no bleeding/ unremarkable. Chest X ray of shoulder negative for fracture.Consult was called to evaluate near syncope. Rule out orthostatic hypotension. Will order orthostatic vital signs.No previous cardiac work up done at [facility] [place] [facility]. Will order echo to evaluate LV function. Low dose Lovenox for DVT prophylaxis. Carotid studies pending. Yeast in urine.Urine culture gram positive cocci, Blood culture gram positive cocci, ID on consult. Uncontrolled glucose, Non-compliant with medications. Uncontrolled blood pressure. Refused Echo and Stress test. Will try to encourage to be done as out patient. Clinically stable. Weak to get out of bed, Physical therapy. Plan: Feels weak to get out of bed Physical therapy Cardiac status stable Heart rate controlled Blood pressure stable Refused Echo and Stress test, will schedule as out patient On ASA 81 mg daily, Lovenox 40 mg daily, Cozaar 50 mg BID Continue current treatment Continue current medications Continue IV antibiotics as ordered by ID (gram positive cocci- blood culture) Glucose Control Contact isolation Seen by Dr. Flores for right shoulder pain, steroid injection Will follow up Plan and treatment discussed with Dr. Ayers
[2018-05-27] MEDS: Insulin Lispro (HUMAlog) HIGH Coverage SC SCH ×4 (08:21→21:57)
--- NOTE | 2018-05-27 08:28 | PN ---
DATE: 05/26/2018 SUBJECTIVE: The patient is 67-year-old, seen and examined lying in bed, seems to be comfortable. According to nursing refusing to participate in therapy, refusing to have stress test done. PHYSICAL EXAMINATION: VITAL SIGNS: She is afebrile, pulse 81, respirations 19, and blood pressure 155/81. LUNGS: Bilateral fair airflow. No rhonchi or crackles. HEART: S1 and S2, audible. ABDOMEN: Soft, obese, nontender. No rebound. No guarding. NEUROLOGIC: The patient is awake, alert, oriented, communicative. EXTREMITIES: Bilateral leg, no edema. Left foot is in a dressing. LABORATORY DATA: WBC is 24.1, hemoglobin 12, hematocrit 37, and platelets 408. Chemistry: Sodium 135, potassium 4.2, chloride 108, CO2 of 23, BUN 28, creatinine 0.8, and blood sugar of ____. Urine culture positive for Enterococcus faecalis. Blood culture positive for beta hemolytic strep group B. Repeat cultures are negative. ASSESSMENT: 1. Status post near syncope. 2. Right shoulder sprain. 3. Bacteremia. 4. Poorly controlled diabetes. 5. Diabetic neuropathy. 6. Left foot abscess status post incision and drainage at the bedside by ____. PLAN: We will continue IV antibiotics. The patient is going for MRI and MRA. We will get echocardiogram, rule out endocarditis. Follow up the patient in a.m. Ana Shaikh MD
[2018-05-27] MEDS: Insulin Lispro (humaLOG) MIX 75/25(10 ml) SC SCH ×2 (10:05→18:09)
[2018-05-27] MEDS: Enoxaparin 40 mg Syringe SC SCH (10:15)
[2018-05-27] MEDS: cefTRIAXone 2 GM IN NS 2 GM/100 ML BAG IVPB SCH (10:15)
[2018-05-27] MEDS: Vancomycin 1gm in NS 250ml 1 GM/250 ML BAG IVPB SCH ×2 (10:16→22:16)
--- NOTE | 2018-05-27 10:24 | PROCN ---
DATE: 05/26/2018 The patient has been complaining of right shoulder pain with symptoms of subacromial impingement and AC joint arthrosis and biceps tendonitis. I took the opportunity to inject her right shoulder with Depo-Medrol and Marcaine through an anterior incision around the subacromial joint and the AC joint and the biceps tendons. I used the Depo-Medrol and Marcaine. We will see how she does and I will start physical therapy for ambulation and encouraged her to get upper extremity exercises as well. FINAL DIAGNOSES: Biceps tendonitis, subacromial impingement and acromioclavicular joint arthrosis. Hopefully, the Depo-Medrol shot will help her symptoms of discomfort. Armando Flores DO
--- NOTE | 2018-05-27 10:35 | CP.PCM.PN ---
Subjective - Date & Time of Evaluation Date of Evaluation: 05/27/18 Time of Evaluation: 09:50 - Subjective Subjective: Patient was refusing tests yesterday but I saw and examined the patient with Dr. Shaikh at bedside and convinced her to do the tests (MRI of foot and 2D echo). Patient is feeling a little better, had steroid injection of her right shoulder and it is feeling a little better, no nausea or diarrhea. Objective - Vital Signs/Intake and Output Vital Signs (last 24 hours): Temp Pulse Resp BP Pulse Ox 98 F 75 18 161/84 H 97 05/26/18 12:00 05/26/18 12:00 05/26/18 12:00 05/26/18 12:00 05/26/18 06:00 Intake and Output: 05/26/18 05/26/18 06:59 18:59 Intake Total 850 Output Total 400 Balance 450 - Medications Medications: Current Medications Aspirin (Ecotrin) 81 mg PO DAILY [facility] Last Admin: 05/26/18 10:48 Dose: 81 mg Enoxaparin Sodium (Lovenox) 40 mg SC DAILY [facility]; Protocol Last Admin: 05/26/18 10:50 Dose: 40 mg Sodium Chloride (Sodium Chloride 0.9%) 1,000 mls @ 100 mls/hr IV .Q10H [facility] Last Admin: 05/26/18 10:51 Dose: 100 mls/hr Vancomycin HCl (Vancomycin 1gm) 1 gm in 250 mls @ 167 mls/hr IVPB Q12H [facility]; Protocol Last Admin: 05/26/18 13:42 Dose: 167 mls/hr Ceftriaxone Sodium (Rocephin 2 Gm Ivpb) 2 gm in 100 mls @ 100 mls/hr IVPB DAILY [facility]; Protocol Stop: 06/02/18 10:16 Last Admin: 05/26/18 10:51 Dose: 100 mls/hr Insulin Human Lispro (Humalog High) 0 units SC ACHS [facility]; Protocol Last Admin: 05/26/18 11:30 Dose: Not Given Insulin Lispro Protam/Lispro Human (Humalog Mix 75/25) 18 units SC ACBD [facility] Last Admin: 05/26/18 10:50 Dose: 18 units Losartan Potassium (Cozaar) 50 mg PO Q12 [facility] Last Admin: 05/26/18 10:48 Dose: 50 mg Mupirocin (Bactroban Ointment) 0 gm TOP BID [facility] Last Admin: 05/26/18 10:48 Dose: 1 applic - Labs Labs: 05/24/18 07:30 05/26/18 06:50 PT 14.0 SECONDS (9.4-12.5) H 05/23/18 13:50 INR 1.26 05/23/18 13:50 APTT 30.5 Seconds (26.9-38.3) 05/23/18 13:50 - Constitutional Appears: Chronically Ill - Head Exam Head Exam: NORMAL INSPECTION - ENT Exam ENT Exam: Mucous Membranes Moist - Neck Exam Neck Exam: absent: Meningismus - Respiratory Exam Respiratory Exam: Decreased Breath Sounds - Cardiovascular Exam Cardiovascular Exam: +S1, +S2 - GI/Abdominal Exam GI & Abdominal Exam: Soft. absent: Tenderness - Extremities Exam Additional comments: left foot with dressings in place Assessment and Plan - Assessment and Plan (Free Text) Plan: Assessment Sepsis due to Group B strep bacteremia, consider due to left foot skin and skin structure infection with abscess S/P bedside I and D, R/O osteomyelitis probable right shoulder acromial bursitis DM morbid obesity with BMI 42 Plan Follow up cultures from the abscess (showing gram positive cocci); MRI ordered by Podiatry - discussed with Dr. Rondon and we are awaiting results when it is done patient received steroid injection into the right shoulder joint - discussed with Dr. Flores continue Vancomycin and Rocephin for now follow up 2D echo results as well will continue to monitor clinically
--- NOTE | 2018-05-27 12:26 | CP.PCM.PN ---
<Gopi Baeza - Last Filed: 05/27/18 12:23> Subjective - Date & Time of Evaluation Date of Evaluation: 05/27/18 Time of Evaluation: 12:23 - Subjective Subjective: Podiatry progress note - Drs. Rondon/Karin 67F seen and evaluated at bedside this AM for left foot wounds. States that she has no pain to her foot however she complains of significant pain in her right shoulder which is improving. Denies N/V/F/C/SOB/CP and has no other acute complaints. Objective - Vital Signs/Intake and Output Vital Signs (last 24 hours): Temp Pulse Resp BP Pulse Ox 98.3 F 72 18 161/77 H 98 05/27/18 11:46 05/27/18 11:46 05/27/18 11:46 05/27/18 11:46 05/27/18 06:00 Intake and Output: 05/27/18 05/27/18 06:59 18:59 Intake Total 800 Output Total 700 Balance 100 - Medications Medications: Current Medications Aspirin (Ecotrin) 81 mg PO DAILY [facility] Last Admin: 05/27/18 10:15 Dose: 81 mg Enoxaparin Sodium (Lovenox) 40 mg SC DAILY [facility]; Protocol Last Admin: 05/27/18 10:15 Dose: 40 mg Glimepiride (Amaryl) 4 mg PO DAILY [facility] Vancomycin HCl (Vancomycin 1gm) 1 gm in 250 mls @ 167 mls/hr IVPB Q12H [facility]; Protocol Last Admin: 05/27/18 10:16 Dose: 167 mls/hr Ceftriaxone Sodium (Rocephin 2 Gm Ivpb) 2 gm in 100 mls @ 100 mls/hr IVPB DAILY [facility]; Protocol Stop: 06/02/18 10:16 Last Admin: 05/27/18 10:15 Dose: 100 mls/hr Insulin Human Lispro (Humalog High) 0 units SC ACHS [facility]; Protocol Last Admin: 05/27/18 08:21 Dose: 4 units Insulin Lispro Protam/Lispro Human (Humalog Mix 75/25) 18 units SC ACBD [facility] Last Admin: 05/27/18 10:05 Dose: 18 units Losartan Potassium (Cozaar) 50 mg PO Q12 [facility] Last Admin: 05/27/18 10:15 Dose: 50 mg Mupirocin (Bactroban Ointment) 0 gm TOP BID [facility] Last Admin: 05/26/18 18:22 Dose: 1 applic - Labs Labs: 05/24/18 07:30 05/26/18 06:50 PT 14.0 SECONDS (9.4-12.5) H 05/23/18 13:50 INR 1.26 05/23/18 13:50 APTT 30.5 Seconds (26.9-38.3) 05/23/18 13:50 - Constitutional Appears: Non-toxic - Head Exam Head Exam: ATRAUMATIC, NORMOCEPHALIC - Extremities Exam Additional comments: VASC: DP and PT pulses palpable 2/4 b/l. CFT <3 seconds to digits. Temperature gradient warm to warm b/l. Perimalleolar edema present b/l. NEURO: Light touch and protective sensation diminished bilaterally. 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 No pain on palpation noted to wound. - Neurological Exam Neurological Exam: Alert, Awake, Oriented x3 - Psychiatric Exam Psychiatric exam: Normal Affect, Normal Mood Assessment and Plan - Assessment and Plan (Free Text) Assessment: 67F with left plantar foot ulceration and left foot abscess Plan: Patient seen and evaluated Discussed in detail with Dr. Frazier Afebrile, WBC 24.1 (05/24) Plantar wound cleansed with saline and dressed with optifoam; abscess opened with sterile scissor and revealed 1 cc of pus and purulent drainage, cleansed with sterile saline and dressed with optifoam Wound cx left foot- gram positive cocci MRI of left foot ordered - f/u results Continue abx per ID Podiatry will continue to follow <Britton Frazier - Last Filed: 05/27/18 16:26> Objective - Vital Signs/Intake and Output Vital Signs (last 24 hours): Temp Pulse Resp BP Pulse Ox 98.3 F 72 18 161/77 H 98 05/27/18 11:46 05/27/18 11:46 05/27/18 11:46 05/27/18 11:46 05/27/18 06:00 Intake and Output: 05/27/18 05/27/18 06:59 18:59 Intake Total 800 Output Total 700 Balance 100 - Medications Medications: Current Medications Aspirin (Ecotrin) 81 mg PO DAILY [facility] Last Admin: 05/27/18 10:15 Dose: 81 mg Enoxaparin Sodium (Lovenox) 40 mg SC DAILY [facility]; Protocol Last Admin: 05/27/18 10:15 Dose: 40 mg Glimepiride (Amaryl) 4 mg PO DAILY [facility] Last Admin: 05/27/18 13:18 Dose: 4 mg Vancomycin HCl (Vancomycin 1gm) 1 gm in 250 mls @ 167 mls/hr IVPB Q12H [facility]; Protocol Last Admin: 05/27/18 10:16 Dose: 167 mls/hr Ceftriaxone Sodium (Rocephin 2 Gm Ivpb) 2 gm in 100 mls @ 100 mls/hr IVPB DAILY [facility]; Protocol Stop: 06/02/18 10:16 Last Admin: 05/27/18 10:15 Dose: 100 mls/hr Insulin Human Lispro (Humalog High) 0 units SC ACHS [facility]; Protocol Last Admin: 05/27/18 13:18 Dose: 7 units Insulin Lispro Protam/Lispro Human (Humalog Mix 75/25) 18 units SC ACBD [facility] Last Admin: 05/27/18 10:05 Dose: 18 units Losartan Potassium (Cozaar) 50 mg PO Q12 [facility] Last Admin: 05/27/18 10:15 Dose: 50 mg Mupirocin (Bactroban Ointment) 0 gm TOP BID [facility] Last Admin: 05/27/18 13:19 Dose: 1 applic - Labs Labs: 05/24/18 07:30 05/26/18 06:50 PT 14.0 SECONDS (9.4-12.5) H 05/23/18 13:50 INR 1.26 05/23/18 13:50 APTT 30.5 Seconds (26.9-38.3) 05/23/18 13:50 Attending/Attestation - Attestation I have personally seen and examined this patient.: Yes I have fully participated in the care of the patient.: Yes I have reviewed all pertinent clinical information, including history, physical exam and plan: Yes
--- NOTE | 2018-05-27 12:45 | CARD ---
APPROVED REPORT Date of service: 05/27/2018 EXAM: Two-dimensional and M-mode echocardiogram with Doppler and color Doppler. INDICATION Infection:Rule out subacute bacterial endocarditis 2D DIMENSIONS IVSd1.2 (0.7-1.1cm)LVDd5.1 (3.9-5.9cm) PWd1.2 (0.7-1.1cm)LVDs4.1 (2.5-4.0cm) FS (%) 20.2 %LVEF (%)41.0 (>50%) M-Mode DIMENSIONS Aortic Root2.80 (2.2-3.7cm)Aortic Cusp Exc.1.50 (1.5-2.0cm) Aortic Valve AoV Peak Ksdkbarx432.0cm/Nolan Peak GR.14mmHg Mitral Valve MV E Sipbzmjv610.0cm/sMV A Vhxngsum231.0cm/sE/A ratio1.0 TDI Lateral E' Peak V6.82cm/sMedial E' Peak V6.04cm/sE/Lateral E'16.0 E/Medial E'18.0 Pulmonary Valve PV Peak Fbhghlpp66.4cm/sPV Peak Grad.3mmHg Tricuspid Valve TR Peak Wicmmbal408gj/sRAP SDRXCKFS90nsDxGC Peak Gr.22mmHg [id number] LEFT VENTRICLE The left ventricle is normal size. There is mild concentric left ventricular hypertrophy. The systolic function is mildly to moderately impaired.EWF-40% There is mild to moderate hypokinesis in the mid-anterolateral wall. Transmitral Doppler flow pattern is Grade III-reversible restrictive diastolic dysfunction. No left ventricle thrombus noted on this study. There is no ventricular septal defect visualized. There is no left ventricular aneurysm. There is no mass noted in the left ventricle. RIGHT VENTRICLE The right ventricle is normal size. There is normal right ventricular wall thickness. The right ventricular systolic function is normal. ATRIA The left atrium size is normal. The right atrium size is normal. The interatrial septum is intact with no evidence for an atrial septal defect. AORTIC VALVE The aortic valve is thickened but opens well. No aortic regurgitation is present. There is no aortic valvular stenosis. There is no aortic valvular vegetation. MITRAL VALVE The mitral valve is thickened but opens well. Mitral regurgitation is trace to mild. There is no mitral valve stenosis. There is no evidence of mitral valve prolapse. TRICUSPID VALVE The tricuspid valve leaflets are thickened , but open well. There is mild tricuspid regurgitation.RVSP_32 mmof hg. There is no tricuspid valve stenosis. There is no tricuspid valve prolapse or vegetation. PULMONIC VALVE The pulmonary valve is normal in structure. There is trace pulmonic valvular regurgitation. There is no pulmonic valvular stenosis. GREAT VESSELS The aortic root is normal in size. The ascending aorta is normal in size. The pulmonary artery is normal. The IVC is normal in size and collapses >50% with inspiration. PERICARDIAL EFFUSION There is no pleural effusion. There is no pericardial effusion. <Conclusion> The left ventricle is normal size. Mitral regurgitation is trace to mild. There is mild tricuspid regurgitation.RVSP_32 mmof hg. There is trace pulmonic valvular regurgitation. There is no pericardial effusion.
[2018-05-27] MEDS: Mupirocin 2% Ointment 15 GM TUBE TOP SCH ×2 (13:19→18:10)
--- NOTE | 2018-05-28 07:40 | CP.PCM.PN ---
Subjective - Date & Time of Evaluation Date of Evaluation: 05/28/18 Time of Evaluation: 06:30 - Subjective Subjective: Lying in bed, No distress, awake,alert, claimed able to get out of bed yesterday Reason for consultation: Cardiac evaluation of near syncope, History of hypertension, hyperlipidemia, hypothyroidism, uncontrolled diabetes, diabetic neuropathy, LLE third digit amputation,tonsillectomy Seen and examined by me and Dr. Ayers Objective - Vital Signs/Intake and Output Vital Signs (last 24 hours): Temp Pulse Resp BP Pulse Ox 98.5 F 69 18 173/86 H 95 05/28/18 06:00 05/28/18 06:00 05/28/18 06:00 05/28/18 06:00 05/28/18 06:00 Intake and Output: 05/28/18 05/28/18 06:59 18:59 Intake Total 1200 Output Total 1600 Balance -400 - Medications Medications: Current Medications Aspirin (Ecotrin) 81 mg PO DAILY [facility] Last Admin: 05/27/18 10:15 Dose: 81 mg Enoxaparin Sodium (Lovenox) 40 mg SC DAILY [facility]; Protocol Last Admin: 05/27/18 10:15 Dose: 40 mg Glimepiride (Amaryl) 4 mg PO DAILY [facility] Last Admin: 05/27/18 13:18 Dose: 4 mg Vancomycin HCl (Vancomycin 1gm) 1 gm in 250 mls @ 167 mls/hr IVPB Q12H [facility]; Protocol Last Admin: 05/27/18 22:16 Dose: 167 mls/hr Ceftriaxone Sodium (Rocephin 2 Gm Ivpb) 2 gm in 100 mls @ 100 mls/hr IVPB DAILY [facility]; Protocol Stop: 06/02/18 10:16 Last Admin: 05/27/18 10:15 Dose: 100 mls/hr Insulin Human Lispro (Humalog High) 0 units SC ACHS [facility]; Protocol Last Admin: 05/27/18 21:57 Dose: Not Given Insulin Lispro Protam/Lispro Human (Humalog Mix 75/25) 18 units SC ACBD [facility] Last Admin: 05/27/18 18:09 Dose: 18 units Losartan Potassium (Cozaar) 50 mg PO Q12 [facility] Last Admin: 05/27/18 22:04 Dose: 50 mg Mupirocin (Bactroban Ointment) 0 gm TOP BID [facility] Last Admin: 05/27/18 18:10 Dose: 1 applic - Labs Labs: 05/24/18 07:30 05/26/18 06:50 PT 14.0 SECONDS (9.4-12.5) H 05/23/18 13:50 INR 1.26 05/23/18 13:50 APTT 30.5 Seconds (26.9-38.3) 05/23/18 13:50 - Constitutional Appears: Non-toxic, No Acute Distress - Head Exam Head Exam: NORMAL INSPECTION, NORMOCEPHALIC - Eye Exam Eye Exam: Normal appearance Pupil Exam: NORMAL ACCOMODATION - ENT Exam ENT Exam: Mucous Membranes Moist, Normal Exam - Respiratory Exam Respiratory Exam: Decreased Breath Sounds, NORMAL BREATHING PATTERN - Cardiovascular Exam Cardiovascular Exam: +S1, +S2 - GI/Abdominal Exam GI & Abdominal Exam: Soft, Normal Bowel Sounds - Extremities Exam Additional comments: left foot dressing - Neurological Exam Neurological Exam: Alert, Awake, Oriented x3 - Psychiatric Exam Psychiatric exam: Normal Affect, Normal Mood - Skin Skin Exam: Dry, Normal Color, Warm Assessment and Plan - Assessment and Plan (Free Text) Assessment: A 67 year old female who came in to the ER near syncopal episode. Patient reports that she was at her chiropractor's office earlier today and was unable to lift herself from the toilet in the bathroom secondary to weakness/dizziness. Patient reports that after trying several times, she fell off of the toilet. She claimed that she had fallen multiple times at home and recently fell again prior to admission and sustained right shoulder/arm pain. History of hypertension, hyperlipidemia, hypothyroidism, uncontrolled diabetes, diabetic neuropathy,chronic right foot wound. LLE third digit amputation,tonsillectomy. Code stroke was called in the ER but ruled out stroke. CT of head no bleeding/ unremarkable. Chest X ray of shoulder negative for fracture.Consult was called to evaluate near syncope. Rule out orthostatic hypotension.No previous cardiac work up done at [facility] [place]. Ordered echo to evaluate LV function but refused. Low dose Lovenox for DVT prophylaxis. Carotid studies pending. Yeast in urine.Urine culture gram positive cocci, Blood culture gram positive cocci,repeat blood culture, no growth. ID on consult. Seen by Dr. Flores for right shoulder pain, steroid injection, Agreed to have echo yesterday. Seen by Physical therapy and able to stand at bedside. Left foot wound culture positive for gram positive cocci. Nares swab positive for MRSA. On contact isolation. Plan: Feels better, able to stand at bedside yesterday with PT Agreed on Echo, done yesterday- LVEF 41 %, mild MR/TR, RVSP 32 mmHg Cardiac status stable Heart rate controlled Blood pressure stable Will see if agrees with Stress test later, if not do as out patient On ASA 81 mg daily, Lovenox 40 mg daily, Cozaar 50 mg BID Continue current treatment Continue current medications Continue IV antibiotics as ordered by ID Glucose Control Contact isolation Will follow up Plan and treatment discussed with Dr. Ayers
--- NOTE | 2018-05-28 08:01 | PN ---
DATE: 05/27/2018 SUBJECTIVE: The patient is a 67-year-old, seen and examined. No more dizziness. The patient refused stress test. She states she has no chest pain and she also refused echo. I explained to her in great detail that echo is important to rule out if there is no vegetation and also she has refused left foot MRI since she is a claustrophobic; however, explaining to her at great length, she seemed to agree. PHYSICAL EXAMINATION: GENERAL: On examination today, she is awake, alert, oriented and communicative. VITAL SIGNS: She is afebrile, pulse 70, respirations 18, blood pressure 161/77. LUNGS: Bilateral fair airflow. No rhonchi or crackle. HEART: S1 and S2 audible. ABDOMEN: Soft and nontender. No rebound. No guarding. NEUROLOGIC: The patient is awake, alert, oriented and communicative. EXTREMITIES: Moves all extremities, except right shoulder she has limited movement better then before since she has intra articular injection given by Dr. Flores. ASSESSMENT: 1. Beta hemolytic Streptococcus group B bacteremia. 2. Enterococcus faecalis urinary tract infection. 3. Left foot abscess status post incision and drainage on bedside. 4. Poorly controlled diabetes. PLAN: The patient is agreed to do echocardiogram and MRI of the left foot. We will continue her on IV antibiotic in the meantime. I will discontinue telemetry. Continue to monitor blood sugar. We will followup this patient in a.m. We will followup MRI and echocardiogram. Continue antibiotics. Ana Shaikh MD
[2018-05-28] MEDS: Insulin Lispro (HUMAlog) HIGH Coverage SC SCH ×4 (08:35→22:30)
[2018-05-28] MEDS: Insulin Lispro (humaLOG) MIX 75/25(10 ml) SC SCH ×2 (08:36→18:11)
[2018-05-28] MEDS: cefTRIAXone 2 GM IN NS 2 GM/100 ML BAG IVPB SCH (09:22)
[2018-05-28] MEDS: Enoxaparin 40 mg Syringe SC SCH (09:22)
[2018-05-28] MEDS: Mupirocin 2% Ointment 15 GM TUBE TOP SCH ×2 (09:23→18:07)
--- NOTE | 2018-05-28 10:05 | CP.PCM.PN ---
Subjective - Date & Time of Evaluation Date of Evaluation: 05/28/18 Time of Evaluation: 09:58 - Subjective Subjective: Podiatry progress note - Drs. Rondon/Karin 67F seen and evaluated at bedside this AM for left foot wounds. States that she has no pain to her foot however she complains of significant pain in her right shoulder which is improving. Denies N/V/F/C/SOB/CP and has no other acute complaints. Objective - Vital Signs/Intake and Output Vital Signs (last 24 hours): Temp Pulse Resp BP Pulse Ox 98.5 F 71 18 168/78 H 95 05/28/18 06:00 05/28/18 09:22 05/28/18 06:00 05/28/18 09:22 05/28/18 06:00 Intake and Output: 05/28/18 05/28/18 06:59 18:59 Intake Total 1200 Output Total 1600 Balance -400 - Medications Medications: Current Medications Aspirin (Ecotrin) 81 mg PO DAILY [facility] Last Admin: 05/28/18 09:22 Dose: 81 mg Enoxaparin Sodium (Lovenox) 40 mg SC DAILY [facility]; Protocol Last Admin: 05/28/18 09:22 Dose: 40 mg Glimepiride (Amaryl) 4 mg PO DAILY [facility] Last Admin: 05/28/18 09:22 Dose: 4 mg Vancomycin HCl (Vancomycin 1gm) 1 gm in 250 mls @ 167 mls/hr IVPB Q12H [facility]; Protocol Last Admin: 05/27/18 22:16 Dose: 167 mls/hr Ceftriaxone Sodium (Rocephin 2 Gm Ivpb) 2 gm in 100 mls @ 100 mls/hr IVPB DAILY [facility]; Protocol Stop: 06/02/18 10:16 Last Admin: 05/28/18 09:22 Dose: 100 mls/hr Insulin Human Lispro (Humalog High) 0 units SC ACHS [facility]; Protocol Last Admin: 05/28/18 08:35 Dose: 2 units Insulin Lispro Protam/Lispro Human (Humalog Mix 75/25) 18 units SC ACBD [facility] Last Admin: 05/28/18 08:36 Dose: 18 units Losartan Potassium (Cozaar) 50 mg PO Q12 [facility] Last Admin: 05/28/18 09:22 Dose: 50 mg Mupirocin (Bactroban Ointment) 0 gm TOP BID [facility] Last Admin: 05/28/18 09:23 Dose: 2 applic - Labs Labs: 05/24/18 07:30 05/26/18 06:50 PT 14.0 SECONDS (9.4-12.5) H 05/23/18 13:50 INR 1.26 05/23/18 13:50 APTT 30.5 Seconds (26.9-38.3) 05/23/18 13:50 - Constitutional Appears: Well, Non-toxic, No Acute Distress - Head Exam Head Exam: ATRAUMATIC, NORMOCEPHALIC - Extremities Exam Additional comments: VASC: DP and PT pulses palpable 2/4 b/l. CFT <3 seconds to digits. Temperature gradient warm to warm b/l. Perimalleolar edema present b/l. NEURO: Light touch and protective sensation diminished bilaterally. 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 No pain on palpation noted to wound. - Neurological Exam Neurological Exam: Alert, Awake, Oriented x3 - Psychiatric Exam Psychiatric exam: Normal Affect, Normal Mood Assessment and Plan - Assessment and Plan (Free Text) Assessment: 67F with left plantar foot ulceration and left foot abscess Plan: Patient seen and evaluated Discussed in detail with Dr. Rondon Afebrile, WBC 24.1 (05/24) Plantar wound and healing abscess site cleansed with saline and dressed with o ptifoam Wound cx left foot- MRSA MRI of left foot ordered - f/u results Continue abx per ID Podiatry will continue to follow
[2018-05-28] MEDS: Vancomycin 1.5 GM in Sodium Chloride 0.9% 500 ML IVPB SCH ×2 (12:09→22:15)
[2018-05-28] MEDS: Oxycodone/Acetaminophen 5/325 mg Tab PO PRN (12:21)
--- NOTE | 2018-05-28 13:01 | MRI ---
Date of service: 05/28/2018 PROCEDURE: MRI Left Foot HISTORY: Pain. COMPARISON: None available. TECHNIQUE: Multiecho multiplanar sequences were performed through the left foot without the use of intravenous contrast. FINDINGS: BONES: Status post resection of the 2nd 3rd digits. No marrow signal abnormality suggest osteomyelitis. MUSCLES: Normal. SOFT TISSUES: Dorsal lateral soft tissue swelling. No evidence of abscess. LISFRANC LIGAMENT: Normal. PLANTAR PLATE: Normal. EXTENSOR TENDONS: Normal. FLEXOR TENDONS: Normal. OTHER FINDINGS: Degenerative changes of the midfoot region. IMPRESSION: Dorsal lateral soft tissue swelling. No evidence of abscess or osteomyelitis.
--- NOTE | 2018-05-28 15:04 | PN ---
DATE: 05/28/2018 SUBJECTIVE: The patient is 67 years old, seen and examined, lying in bed, complained of right shoulder pain. She stated it hurts to elevate the shoulder, also complained of not sleeping well since she is here. She went for echocardiogram yesterday, seems to be unremarkable. Scheduled for left foot MRI today. Complained of being tired because of not sleeping well. PHYSICAL EXAMINATION: VITAL SIGNS: She is afebrile, pulse 71, respirations 18, blood pressure 168/78. LUNGS: Bilateral fair airflow. No rhonchi or crackle. HEART: S1 and S2 audible. ABDOMEN: Soft and nontender. No rebound. No guarding. NEUROLOGIC: The patient is awake, alert, oriented and able to communicate. EXTREMITIES: Right shoulder limited movement because of pain. LABORATORY DATA: Echocardiogram, no vegetation seen. There is no new lab available today. Her blood sugar this morning was 182. Foot abscess growing MRSA. Her blood culture positive for beta-hemolytic streptococcal B and urine is growing enterococcus faecalis. ASSESSMENT: 1. Beta-hemolytic bacteremia. 2. Methicillin-resistant staphylococcus aureus left foot abscess. 3. Enterococcus faecalis urinary tract infection. 4. Poorly controlled diabetes. 5. Hypertension. 6. Hyperlipidemia. 7. Right shoulder sprain. PLAN: We will follow up MRI of the foot and I will add Mobic 15 mg daily for right shoulder. We will continue on DVT prophylaxis. Percocet as needed. She is requesting for a sleep pill, I will order her Ambien 5 mg at bedtime. We will reevaluate the patient in a.m. and make further recommendation according to MRI report. We will discuss with ID and determine the duration of antibiotic if it can resist to p.o. or if she need IV. We will make disposition plan depending on MRI. Ana Shaikh MD
--- NOTE | 2018-05-28 16:15 | CP.PCM.PN ---
Subjective - Date & Time of Evaluation Date of Evaluation: 05/28/18 Time of Evaluation: 14:35 - Subjective Subjective: No fevers, still with some pain in the shoulder, improved pain in the left foot, no nausea. Objective - Vital Signs/Intake and Output Vital Signs (last 24 hours): Temp Pulse Resp BP Pulse Ox 98.5 F 99 H 18 167/78 H 98 05/27/18 06:00 05/27/18 06:00 05/27/18 06:00 05/27/18 06:00 05/27/18 06:00 Intake and Output: 05/27/18 05/27/18 06:59 18:59 Intake Total 800 Output Total 700 Balance 100 - Medications Medications: Current Medications Aspirin (Ecotrin) 81 mg PO DAILY [facility] Last Admin: 05/27/18 10:15 Dose: 81 mg Enoxaparin Sodium (Lovenox) 40 mg SC DAILY [facility]; Protocol Last Admin: 05/27/18 10:15 Dose: 40 mg Sodium Chloride (Sodium Chloride 0.9%) 1,000 mls @ 100 mls/hr IV .Q10H [facility] Last Admin: 05/26/18 22:53 Dose: Not Given Vancomycin HCl (Vancomycin 1gm) 1 gm in 250 mls @ 167 mls/hr IVPB Q12H [facility]; Protocol Last Admin: 05/27/18 10:16 Dose: 167 mls/hr Ceftriaxone Sodium (Rocephin 2 Gm Ivpb) 2 gm in 100 mls @ 100 mls/hr IVPB DAILY [facility]; Protocol Stop: 06/02/18 10:16 Last Admin: 05/27/18 10:15 Dose: 100 mls/hr Insulin Human Lispro (Humalog High) 0 units SC ACHS [facility]; Protocol Last Admin: 05/27/18 08:21 Dose: 4 units Insulin Lispro Protam/Lispro Human (Humalog Mix 75/25) 18 units SC ACBD [facility] Last Admin: 05/27/18 10:05 Dose: 18 units Losartan Potassium (Cozaar) 50 mg PO Q12 [facility] Last Admin: 05/27/18 10:15 Dose: 50 mg Mupirocin (Bactroban Ointment) 0 gm TOP BID [facility] Last Admin: 05/26/18 18:22 Dose: 1 applic - Labs Labs: 05/24/18 07:30 05/26/18 06:50 PT 14.0 SECONDS (9.4-12.5) H 05/23/18 13:50 INR 1.26 05/23/18 13:50 APTT 30.5 Seconds (26.9-38.3) 05/23/18 13:50 - Constitutional Appears: Chronically Ill - Head Exam Head Exam: NORMAL INSPECTION - Respiratory Exam Respiratory Exam: Decreased Breath Sounds - Cardiovascular Exam Cardiovascular Exam: +S1, +S2 - GI/Abdominal Exam GI & Abdominal Exam: Soft. absent: Tenderness Assessment and Plan - Assessment and Plan (Free Text) Plan: Assessment Sepsis due to Group B strep bacteremia, consider due to left foot skin and skin structure infection with abscess S/P bedside I and D showing MRSA, R/O osteomyelitis probable right shoulder acromial bursitis DM morbid obesity with BMI 42 Plan MRI ordered by Podiatry - discussed with Dr. Rondon and we are awaiting results - it has been done today patient received steroid injection into the right shoulder joint - discussed with Dr. Flores continue Vancomycin and Rocephin for now 2D echo does not show vegetations as per official reading will continue to monitor clinically
[2018-05-29] MEDS: Insulin Lispro (HUMAlog) HIGH Coverage SC SCH ×4 (08:00→22:00)
[2018-05-29] MEDS: Insulin Lispro (humaLOG) MIX 75/25(10 ml) SC SCH ×2 (08:00→17:40)
--- NOTE | 2018-05-29 08:07 | CP.PCM.PN ---
Subjective - Date & Time of Evaluation Date of Evaluation: 05/29/18 Time of Evaluation: 06:35 - Subjective Subjective: Lying in bed, No distress, awake,alert Reason for consultation: Cardiac evaluation of near syncope, History of hypertension, hyperlipidemia, hypothyroidism, uncontrolled diabetes, diabetic neuropathy, LLE third digit amputation,tonsillectomy Seen and examined by me and Dr. Ayers Objective - Vital Signs/Intake and Output Vital Signs (last 24 hours): Temp Pulse Resp BP Pulse Ox 97.9 F 80 19 169/88 H 96 05/29/18 06:00 05/29/18 06:00 05/29/18 06:00 05/29/18 06:00 05/29/18 06:00 Intake and Output: 05/29/18 05/29/18 06:59 18:59 Intake Total 1040 Output Total 600 Balance 440 - Medications Medications: Current Medications Aspirin (Ecotrin) 81 mg PO DAILY [facility] Last Admin: 05/28/18 09:22 Dose: 81 mg Enoxaparin Sodium (Lovenox) 40 mg SC DAILY [facility]; Protocol Last Admin: 05/28/18 09:22 Dose: 40 mg Glimepiride (Amaryl) 4 mg PO DAILY [facility] Last Admin: 05/28/18 09:22 Dose: 4 mg Ceftriaxone Sodium (Rocephin 2 Gm Ivpb) 2 gm in 100 mls @ 100 mls/hr IVPB DAILY [facility]; Protocol Stop: 06/02/18 10:16 Last Admin: 05/28/18 09:22 Dose: 100 mls/hr Vancomycin HCl 1.5 gm/ Sodium (Chloride) 500 mls @ 167 mls/hr IVPB Q12H [facility]; Protocol Last Admin: 05/28/18 22:15 Dose: 167 mls/hr Insulin Human Lispro (Humalog High) 0 units SC ACHS [facility]; Protocol Last Admin: 05/28/18 22:30 Dose: Not Given Insulin Lispro Protam/Lispro Human (Humalog Mix 75/25) 18 units SC ACBD [facility] Last Admin: 05/28/18 18:11 Dose: 18 units Losartan Potassium (Cozaar) 50 mg PO Q12 [facility] Last Admin: 05/28/18 21:19 Dose: 50 mg Meloxicam (Mobic) 15 mg PO DAILY [facility] Last Admin: 05/28/18 12:11 Dose: 15 mg Mupirocin (Bactroban Ointment) 0 gm TOP BID [facility] Last Admin: 05/28/18 18:07 Dose: 2 applic Oxycodone/Acetaminophen (Percocet 5/325 Mg Tab) 1 tab PO Q6H PRN PRN Reason: Pain, moderate (4-7) Stop: 05/31/18 11:44 Last Admin: 05/28/18 12:21 Dose: 1 tab Zolpidem Tartrate (Ambien) 5 mg PO HS PRN; Protocol PRN Reason: Insomnia Last Admin: 05/28/18 23:11 Dose: 5 mg - Labs Labs: 05/24/18 07:30 05/26/18 06:50 PT 14.0 SECONDS (9.4-12.5) H 05/23/18 13:50 INR 1.26 05/23/18 13:50 APTT 30.5 Seconds (26.9-38.3) 05/23/18 13:50 - Constitutional Appears: Non-toxic, No Acute Distress - Head Exam Head Exam: NORMAL INSPECTION, NORMOCEPHALIC - Eye Exam Eye Exam: Normal appearance Pupil Exam: NORMAL ACCOMODATION - ENT Exam ENT Exam: Mucous Membranes Moist, Normal Exam - Neck Exam Neck Exam: Full ROM, Normal Inspection - Respiratory Exam Respiratory Exam: Decreased Breath Sounds, NORMAL BREATHING PATTERN - Cardiovascular Exam Cardiovascular Exam: +S1, +S2 - GI/Abdominal Exam GI & Abdominal Exam: Soft, Normal Bowel Sounds - Extremities Exam Additional comments: left foot dressing - Neurological Exam Neurological Exam: Alert, Awake, Oriented x3 - Psychiatric Exam Psychiatric exam: Normal Affect, Normal Mood - Skin Skin Exam: Dry, Normal Color, Warm Assessment and Plan - Assessment and Plan (Free Text) Assessment: A 67 year old female who came in to the ER near syncopal episode. Patient reports that she was at her chiropractor's office earlier today and was unable to lift herself from the toilet in the bathroom secondary to weakness/dizziness. Patient reports that after trying several times, she fell off of the toilet. She claimed that she had fallen multiple times at home and recently fell again prior to admission and sustained right shoulder/arm pain. History of hypertension, hyperlipidemia, hypothyroidism, uncontrolled diabetes, diabetic neuropathy,chronic right foot wound. LLE third digit amputation,tonsillectomy. Code stroke was called in the ER but ruled out stroke. CT of head no bleeding/ unremarkable. Chest X ray of shoulder negative for fracture.Consult was called to evaluate near syncope. Rule out orthostatic hypotension.No previous cardiac work up done at [facility]. Ordered echo to evaluate LV function but refused. Low dose Lovenox for DVT prophylaxis. Carotid studies pending. Yeast in urine.Urine culture gram positive cocci, Blood culture gram positive cocci,repeat blood culture, no growth. ID on consult. Seen by Dr. Flores for right shoulder pain, steroid injection, Agreed to have echo . Seen by Physical therapy and able to stand at bedside. Left foot wound culture positive for gram positive cocci. Nares swab positive for MRSA. On contact isolation. Echo done - LVEF 41 %, mild MR/TR, RVSP 32 mmHg, no vegetation.No further cardiac work up at this point. Out patient stress test if patient agrees. Plan: No distress, Feels better MRI of foot yesterday-no evidence of osteomyelitis, dorsal lateral soft tissue swelling Cardiac status stable Heart rate controlled Blood pressure stable On ASA 81 mg daily, Lovenox 40 mg daily, Cozaar 50 mg BID Continue current treatment Continue current medications Continue IV antibiotics as ordered by ID Glucose Control Contact isolation Continue physical therapy Will follow up Plan and treatment discussed with Dr. Ayers
[2018-05-29 08:23] LABS: ALB/GLOB RATIO 0.8 (1.1-1.8); ALBUMIN 2.6 g/dL (3.0-4.8); ALT/SGPT 26 U/L (7-56); AST/SGOT 26 U/L (14-36); BLOOD UREA NITROGEN 28 mg/dL (7-21); CALCIUM 8.5 mg/dL (8.4-10.5); GFR NON-AFRICAN AMERICAN > 60
[2018-05-29 09:15] LABS: BASO # 0.06 K/mm3 (0.0-2.0); BASO % 0.4 % (0.0-3.0); EOS # 0.1 (0.0-0.7); EOS % 0.6 % (1.5-5.0); HEMOGLOBIN 13.4 g/dL (12.0-16.0); LYMPH # 2.2 (1.2-3.4); LYMPH % 13.3 % (22.0-35.0); MEAN CELL VOLUME 97.7 fl (80.0-105.0); MEAN CORPUSCULAR HEMOGLOBIN 31.5 pg (25.0-35.0); MEAN CORPUSCULAR HGB CONC 32.2 g/dl (31.0-37.0); MEAN PLATELET VOLUME 9.1 fl (7.0-11.0); MONO # 1.8 (0.1-0.6); MONO % 11.1 % (1.0-6.0); RBC 4.26 10^6/uL (3.5-6.1); RED CELL DISTRIBUTION WIDTH 13.4 % (11.5-14.5); WHITE BLOOD COUNT 16.5 10^3/uL (4.5-11.0)
[2018-05-29] MEDS: Oxychlorosene Topical 2 gm Packet TOP SCH (10:00)
--- NOTE | 2018-05-29 10:22 | CP.PCM.PN ---
Subjective - Date & Time of Evaluation Date of Evaluation: 05/29/18 Time of Evaluation: 10:16 - Subjective Subjective: Podiatry progress note - Drs. Rondon/Karin 67F seen and evaluated at bedside this AM with Dr. Rondon for left foot wounds. States the pain in her shoulder has been improving. Denies pain to her feet. Denies N/V/F/C/SOB/CP and has no other acute complaints. Objective - Vital Signs/Intake and Output Vital Signs (last 24 hours): Temp Pulse Resp BP Pulse Ox 97.9 F 80 19 169/88 H 96 05/29/18 06:00 05/29/18 06:00 05/29/18 06:00 05/29/18 06:00 05/29/18 06:00 Intake and Output: 05/29/18 05/29/18 06:59 18:59 Intake Total 1040 Output Total 600 Balance 440 - Medications Medications: Current Medications Aspirin (Ecotrin) 81 mg PO DAILY [facility] Last Admin: 05/28/18 09:22 Dose: 81 mg Enoxaparin Sodium (Lovenox) 40 mg SC DAILY [facility]; Protocol Last Admin: 05/28/18 09:22 Dose: 40 mg Glimepiride (Amaryl) 4 mg PO DAILY [facility] Last Admin: 05/28/18 09:22 Dose: 4 mg Ceftriaxone Sodium (Rocephin 2 Gm Ivpb) 2 gm in 100 mls @ 100 mls/hr IVPB DAILY [facility]; Protocol Stop: 06/02/18 10:16 Last Admin: 05/28/18 09:22 Dose: 100 mls/hr Vancomycin HCl 1.5 gm/ Sodium (Chloride) 500 mls @ 167 mls/hr IVPB Q12H [facility]; Protocol Last Admin: 05/28/18 22:15 Dose: 167 mls/hr Insulin Human Lispro (Humalog High) 0 units SC ACHS [facility]; Protocol Last Admin: 05/28/18 22:30 Dose: Not Given Insulin Lispro Protam/Lispro Human (Humalog Mix 75/25) 18 units SC ACBD [facility] Last Admin: 05/28/18 18:11 Dose: 18 units Losartan Potassium (Cozaar) 50 mg PO Q12 [facility] Last Admin: 05/28/18 21:19 Dose: 50 mg Meloxicam (Mobic) 15 mg PO DAILY [facility] Last Admin: 05/28/18 12:11 Dose: 15 mg Mupirocin (Bactroban Ointment) 0 gm TOP BID [facility] Last Admin: 05/28/18 18:07 Dose: 2 applic Oxychlorosene Sodium (Clorpactin Wcs-90) 2 gm TOP DAILY [facility] Oxycodone/Acetaminophen (Percocet 5/325 Mg Tab) 1 tab PO Q6H PRN PRN Reason: Pain, moderate (4-7) Stop: 05/31/18 11:44 Last Admin: 05/28/18 12:21 Dose: 1 tab Zolpidem Tartrate (Ambien) 5 mg PO HS PRN; Protocol PRN Reason: Insomnia Last Admin: 05/28/18 23:11 Dose: 5 mg - Labs Labs: 05/29/18 08:55 05/29/18 07:30 PT 14.0 SECONDS (9.4-12.5) H 05/23/18 13:50 INR 1.26 05/23/18 13:50 APTT 30.5 Seconds (26.9-38.3) 05/23/18 13:50 - Constitutional Appears: Well, Non-toxic, No Acute Distress - Head Exam Head Exam: ATRAUMATIC, NORMOCEPHALIC - Extremities Exam Additional comments: VASC: DP and PT pulses palpable 2/4 b/l. CFT <3 seconds to digits. Temperature gradient warm to warm b/l. Perimalleolar edema present b/l. NEURO: Light touch and protective sensation diminished bilaterally. 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 No pain on palpation noted to wound. - Neurological Exam Neurological Exam: Alert, Awake, Oriented x3 - Psychiatric Exam Psychiatric exam: Normal Affect, Normal Mood Assessment and Plan - Assessment and Plan (Free Text) Assessment: 67F with left plantar foot ulceration and left foot abscess Plan: Patient seen and evaluated with Dr. Rondon Afebrile, WBC 16.5 Left foot plantar wound stable, dressed with optifoam; abscess site probed and packed with 1/4" iodoform, dressed with DSD Clorpactin ordered - will use to flush abscess site while in house Wound cx left foot- MRSA MRI of left foot: no bone marrow edema and no osteomyelitis suspected - probe to bone on examination gives high clinical suspicion of osteomyelitis Recommend 4-6 weeks IV abx Continue abx per ID - recs for termination clerk abx Can be followed as outpatient by podiatry Podiatry will continue to follow
[2018-05-29 10:40] LABS: HEMOGLOBIN 12.6 g/dL (12.0-16.0); MEAN CELL VOLUME 97.3 fl (80.0-105.0); MEAN CORPUSCULAR HEMOGLOBIN 31.2 pg (25.0-35.0); MEAN CORPUSCULAR HGB CONC 32.1 g/dl (31.0-37.0); MEAN PLATELET VOLUME 8.8 fl (7.0-11.0); RBC 4.04 10^6/uL (3.5-6.1); RED CELL DISTRIBUTION WIDTH 13.2 % (11.5-14.5); WHITE BLOOD COUNT 16.1 10^3/uL (4.5-11.0)
[2018-05-29] MEDS: Oxycodone/Acetaminophen 5/325 mg Tab PO PRN (11:06)
[2018-05-29] MEDS: cefTRIAXone 2 GM IN NS 2 GM/100 ML BAG IVPB SCH (11:09)
[2018-05-29] MEDS: Enoxaparin 40 mg Syringe SC SCH (11:09)
[2018-05-29] MEDS: Vancomycin 1.5 GM in Sodium Chloride 0.9% 500 ML IVPB SCH ×2 (11:11→23:15)
[2018-05-29] MEDS: Mupirocin 2% Ointment 15 GM TUBE TOP SCH ×2 (11:13→17:42)
--- NOTE | 2018-05-29 13:28 | CP.PCM.PN ---
Subjective - Date & Time of Evaluation Date of Evaluation: 05/29/18 Time of Evaluation: 10:05 - Subjective Subjective: Still with some right shoulder pain but a little better, no fevers but feels uncomfortable and not happy about her needing to go to a rehab facility. No nausea. Objective - Vital Signs/Intake and Output Vital Signs (last 24 hours): Temp Pulse Resp BP Pulse Ox 97.4 F L 80 18 154/68 H 96 05/29/18 12:00 05/29/18 12:00 05/29/18 12:00 05/29/18 11:07 05/29/18 06:00 Intake and Output: 05/29/18 05/29/18 06:59 18:59 Intake Total 1040 Output Total 600 Balance 440 - Medications Medications: Current Medications Aspirin (Ecotrin) 81 mg PO DAILY [facility] Last Admin: 05/29/18 11:09 Dose: 81 mg Enoxaparin Sodium (Lovenox) 40 mg SC DAILY [facility]; Protocol Last Admin: 05/29/18 11:09 Dose: 40 mg Glimepiride (Amaryl) 4 mg PO DAILY [facility] Last Admin: 05/29/18 11:13 Dose: 4 mg Ceftriaxone Sodium (Rocephin 2 Gm Ivpb) 2 gm in 100 mls @ 100 mls/hr IVPB DAILY [facility]; Protocol Stop: 06/02/18 10:16 Last Admin: 05/29/18 11:09 Dose: 100 mls/hr Vancomycin HCl 1.5 gm/ Sodium (Chloride) 500 mls @ 167 mls/hr IVPB Q12H [facility]; Protocol Last Admin: 05/29/18 11:11 Dose: 167 mls/hr Insulin Human Lispro (Humalog High) 0 units SC ACHS [facility]; Protocol Last Admin: 05/29/18 13:10 Dose: 2 units Insulin Lispro Protam/Lispro Human (Humalog Mix 75/25) 18 units SC ACBD [facility] Last Admin: 05/29/18 08:00 Dose: Not Given Losartan Potassium (Cozaar) 50 mg PO Q12 [facility] Last Admin: 05/29/18 11:07 Dose: 50 mg Meloxicam (Mobic) 15 mg PO DAILY [facility] Last Admin: 05/29/18 11:07 Dose: 15 mg Mupirocin (Bactroban Ointment) 0 gm TOP BID [facility] Last Admin: 05/29/18 11:13 Dose: 2 applic Oxychlorosene Sodium (Clorpactin Wcs-90) 2 gm TOP DAILY [facility] Oxycodone/Acetaminophen (Percocet 5/325 Mg Tab) 1 tab PO Q6H PRN PRN Reason: Pain, moderate (4-7) Stop: 05/31/18 11:44 Last Admin: 05/29/18 11:06 Dose: 1 tab Zolpidem Tartrate (Ambien) 5 mg PO HS PRN; Protocol PRN Reason: Insomnia Last Admin: 05/28/18 23:11 Dose: 5 mg - Labs Labs: 05/29/18 10:00 05/29/18 07:30 PT 14.0 SECONDS (9.4-12.5) H 05/23/18 13:50 INR 1.26 05/23/18 13:50 APTT 30.5 Seconds (26.9-38.3) 05/23/18 13:50 - Constitutional Appears: No Acute Distress, Chronically Ill - Head Exam Head Exam: NORMAL INSPECTION - ENT Exam ENT Exam: Mucous Membranes Moist - Respiratory Exam Respiratory Exam: Decreased Breath Sounds - Cardiovascular Exam Cardiovascular Exam: +S1, +S2 - GI/Abdominal Exam GI & Abdominal Exam: Soft. absent: Tenderness - Extremities Exam Additional comments: left foot with dressings in place Assessment and Plan - Assessment and Plan (Free Text) Plan: Assessment Sepsis due to Group B strep bacteremia, source not clear, in this patient with left foot skin and skin structure infection with abscess S/P bedside I and D showing MRSA, with no osteomyelitis on MRI; patient also with right shoulder acromial bursitis DM morbid obesity with BMI 42 Plan MRI reviewed patient received steroid injection into the right shoulder joint - discussed with Dr. Flores on Vancomycin and Rocephin (day 6 from first negative blood cx) 2D echo does not show vegetations as per official reading since source is not clear and there is Strep bacteremia, will recommend total 4 weeks of antibiotics (i.e. 3 more weeks from today); may use Doxycycline instead of Vancomycin on discharge to the rehab facility - conveyed this to the case repairer will continue to monitor clinically while the patient is in the hospital ordered Vanco trough
--- NOTE | 2018-05-29 18:15 | PN ---
DATE: 05/29/2018 SUBJECTIVE: The patient is 67 years old, seen and examined, sitting in chair, complaining of right shoulder pain, has difficulty getting out of bed. She is max assist, recommended for subacute rehab. PHYSICAL EXAMINATION: GENERAL: The patient is awake, alert, oriented, communicative. VITAL SIGNS: She is afebrile, pulse 80, respirations 19, blood pressure 154/68. LUNGS: Bilateral fair airflow. No rhonchi or crackle. HEART: S1 and S2 audible. ABDOMEN: Soft and nontender. No rebound. No guarding. NEUROLOGIC: The patient is awake, alert, oriented and able to communicate. EXTREMITIES: Right shoulder, she has limited movement because of the pain. Bilateral leg +1 edema. Left foot is in the dressing. LABORATORY DATA: WBC 16.1, hemoglobin 12.6, hematocrit 39.3, platelets of 472. Chemistries: Sodium 137, potassium 4.9, chloride 104, CO2 of 31, BUN 28, creatinine 0.9, and blood sugar of 177. The patient had MRI done negative for osteomyelitis, negative for abscess. She also had echocardiogram done negative for vegetation. ASSESSMENT: 1. Status post beta-hemolytic Staphylococcus group B bacteremia. Two bottles were positive. Repeat one is negative. 2. Right shoulder sprain status post fall. 3. Status post near syncope. 4. Poorly controlled diabetes. 5. Hypertension. 6. Left foot abscess status post incision and drainage. PLAN: The patient needs 10 to 14 days of antibiotics. We will proceed for PICC line. Once the PICC line is achieved, the patient will be transferred to subacute rehab for physical therapy and completion of antibiotics as recommended by Infectious Disease. Ana Shaikh MD
[2018-05-30] MEDS: Oxycodone/Acetaminophen 5/325 mg Tab PO PRN ×2 (05:21→15:07)
[2018-05-30 06:28] VITALS: O2SAT 100
[2018-05-30 06:34] VITALS: RESP 20
--- NOTE | 2018-05-30 07:51 | CP.PCM.PN ---
Subjective - Date & Time of Evaluation Date of Evaluation: 05/30/18 Time of Evaluation: 06:40 - Subjective Subjective: Lying in bed, awake,alert,No distress Reason for consultation: Cardiac evaluation of near syncope, History of hypertension, hyperlipidemia, hypothyroidism, uncontrolled diabetes, diabetic neuropathy, LLE third digit amputation,tonsillectomy Seen and examined by me and Dr. Ayers Objective - Vital Signs/Intake and Output Vital Signs (last 24 hours): Temp Pulse Resp BP Pulse Ox 98.4 F 72 20 152/71 H 100 05/30/18 06:00 05/30/18 06:00 05/30/18 06:00 05/30/18 06:00 05/30/18 06:00 Intake and Output: 05/30/18 05/30/18 06:59 18:59 Intake Total 360 Balance 360 - Medications Medications: Current Medications Aspirin (Ecotrin) 81 mg PO DAILY [facility] Last Admin: 05/29/18 11:09 Dose: 81 mg Enoxaparin Sodium (Lovenox) 40 mg SC DAILY [facility]; Protocol Last Admin: 05/29/18 11:09 Dose: 40 mg Glimepiride (Amaryl) 4 mg PO DAILY [facility] Last Admin: 05/29/18 11:13 Dose: 4 mg Ceftriaxone Sodium (Rocephin 2 Gm Ivpb) 2 gm in 100 mls @ 100 mls/hr IVPB DAILY [facility]; Protocol Stop: 06/02/18 10:16 Last Admin: 05/29/18 11:09 Dose: 100 mls/hr Vancomycin HCl 1.5 gm/ Sodium (Chloride) 500 mls @ 167 mls/hr IVPB Q12H [facility]; Protocol Last Admin: 05/29/18 23:15 Dose: Not Given Insulin Human Lispro (Humalog High) 0 units SC ACHS [facility]; Protocol Last Admin: 05/29/18 22:00 Dose: Not Given Insulin Lispro Protam/Lispro Human (Humalog Mix 75/25) 18 units SC ACBD [facility] Last Admin: 05/29/18 17:40 Dose: 18 units Losartan Potassium (Cozaar) 50 mg PO Q12 [facility] Last Admin: 05/29/18 21:42 Dose: 50 mg Meloxicam (Mobic) 15 mg PO DAILY [facility] Last Admin: 05/29/18 11:07 Dose: 15 mg Mupirocin (Bactroban Ointment) 0 gm TOP BID [facility] Last Admin: 05/29/18 17:42 Dose: 2 applic Oxychlorosene Sodium (Clorpactin Wcs-90) 2 gm TOP DAILY [facility] Last Admin: 05/29/18 10:00 Dose: Not Given Oxycodone/Acetaminophen (Percocet 5/325 Mg Tab) 1 tab PO Q6H PRN PRN Reason: Pain, moderate (4-7) Stop: 05/31/18 11:44 Last Admin: 05/30/18 05:21 Dose: 1 tab Zolpidem Tartrate (Ambien) 5 mg PO HS PRN; Protocol PRN Reason: Insomnia Last Admin: 05/29/18 21:48 Dose: 5 mg - Labs Labs: 05/29/18 10:00 05/29/18 07:30 PT 14.0 SECONDS (9.4-12.5) H 05/23/18 13:50 INR 1.26 05/23/18 13:50 APTT 30.5 Seconds (26.9-38.3) 05/23/18 13:50 - Constitutional Appears: Non-toxic, No Acute Distress - Head Exam Head Exam: NORMAL INSPECTION, NORMOCEPHALIC - Eye Exam Eye Exam: Normal appearance Pupil Exam: NORMAL ACCOMODATION - ENT Exam ENT Exam: Mucous Membranes Moist, Normal Exam - Respiratory Exam Respiratory Exam: Decreased Breath Sounds, NORMAL BREATHING PATTERN - Cardiovascular Exam Cardiovascular Exam: +S1, +S2 - GI/Abdominal Exam GI & Abdominal Exam: Soft, Normal Bowel Sounds - Extremities Exam Extremities Exam: Full ROM - Neurological Exam Neurological Exam: Alert, Awake, Oriented x3 - Psychiatric Exam Psychiatric exam: Normal Affect, Normal Mood - Skin Skin Exam: Dry, Normal Color, Warm Assessment and Plan - Assessment and Plan (Free Text) Assessment: A 67 year old female who came in to the ER near syncopal episode. Patient reports that she was at her chiropractor's office earlier today and was unable to lift herself from the toilet in the bathroom secondary to weakness/dizziness. Patient reports that after trying several times, she fell off of the toilet. She claimed that she had fallen multiple times at home and recently fell again prior to admission and sustained right shoulder/arm pain. History of hypertension, hyperlipidemia, hypothyroidism, uncontrolled diabetes, diabetic neuropathy,chronic right foot wound. LLE third digit amputation,tonsillectomy. Code stroke was called in the ER but ruled out stroke. CT of head no bleeding/ unremarkable. Chest X ray of shoulder negative for fracture.Consult was called to evaluate near syncope. Rule out orthostatic hypotension.No previous cardiac work up done at [facility]. Ordered echo to evaluate LV function but refused. Low dose Lovenox for DVT prophylaxis. Carotid studies pending. Yeast in urine.Urine culture gram positive cocci, Blood culture gram positive cocci,repeat blood culture, no growth. ID on consult. Seen by Dr. Flores for right shoulder pain, steroid injection, Agreed to have echo . Seen by Physical therapy and able to stand at bedside. Left foot wound culture positive for gram positive cocci. Nares swab positive for MRSA. On contact isolation. Echo done - LVEF 41 %, mild MR/TR, RVSP 32 mmHg, no vegetation.No further cardiac work up at this point. Out patient stress test if patient agrees. MRI of foot yesterday-no evidence of osteomyelitis, dorsal lateral soft tissue swelling.Cardiac status stable. Plan: No distress, Feels better, ambulated out from room Cardiac status stable Heart rate controlled Blood pressure stable On ASA 81 mg daily, Lovenox 40 mg daily, Cozaar 50 mg BID Continue current treatment Continue current medications Continue IV antibiotics as ordered by ID Glucose Control Contact isolation Continue physical therapy Will follow up Plan and treatment discussed with Dr. Ayers
[2018-05-30] MEDS: Insulin Lispro (HUMAlog) HIGH Coverage SC SCH ×3 (08:02→16:53)
[2018-05-30] MEDS: Insulin Lispro (humaLOG) MIX 75/25(10 ml) SC SCH ×2 (08:45→16:53)
[2018-05-30] MEDS: Enoxaparin 40 mg Syringe SC SCH (10:06)
[2018-05-30] MEDS: cefTRIAXone 2 GM IN NS 2 GM/100 ML BAG IVPB SCH (10:06)
[2018-05-30 10:47] LABS: HEMOGLOBIN 11.6 g/dL (12.0-16.0); MEAN CELL VOLUME 97.6 fl (80.0-105.0); MEAN CORPUSCULAR HEMOGLOBIN 31.2 pg (25.0-35.0); MEAN PLATELET VOLUME 8.9 fl (7.0-11.0); RBC 3.72 10^6/uL (3.5-6.1); RED CELL DISTRIBUTION WIDTH 13.1 % (11.5-14.5)
[2018-05-30] MEDS: Mupirocin 2% Ointment 15 GM TUBE TOP SCH ×3 (11:00→17:04)
[2018-05-30] MEDS: Oxychlorosene Topical 2 gm Packet TOP SCH (11:00)
--- NOTE | 2018-05-30 11:29 | CP.PCM.PN ---
<Gopi Baeza - Last Filed: 05/30/18 11:26> Subjective - Date & Time of Evaluation Date of Evaluation: 05/30/18 Time of Evaluation: 11:27 - Subjective Subjective: Podiatry progress note - Drs. Rondon/Karin 67F seen and evaluated at bedside this AM with Dr. Frazier for left foot wounds. States the pain in her shoulder has been improving. Denies pain to her feet. Denies N/V/F/C/SOB/CP and has no other acute complaints. Objective - Vital Signs/Intake and Output Vital Signs (last 24 hours): Temp Pulse Resp BP Pulse Ox 98.4 F 72 20 155/78 H 100 05/30/18 06:00 05/30/18 10:06 05/30/18 06:00 05/30/18 10:06 05/30/18 06:00 Intake and Output: 05/30/18 05/30/18 06:59 18:59 Intake Total 360 Balance 360 - Medications Medications: Current Medications Aspirin (Ecotrin) 81 mg PO DAILY [facility] [place] Last Admin: 05/30/18 10:07 Dose: 81 mg Enoxaparin Sodium (Lovenox) 40 mg SC DAILY [facility]; Protocol Last Admin: 05/30/18 10:06 Dose: 40 mg Glimepiride (Amaryl) 4 mg PO DAILY [facility] Last Admin: 05/30/18 10:06 Dose: 4 mg Ceftriaxone Sodium (Rocephin 2 Gm Ivpb) 2 gm in 100 mls @ 100 mls/hr IVPB DAILY [facility]; Protocol Stop: 06/02/18 10:16 Last Admin: 05/30/18 10:06 Dose: 100 mls/hr Vancomycin HCl 1.5 gm/ Sodium (Chloride) 500 mls @ 167 mls/hr IVPB Q12H [facility]; Protocol Last Admin: 05/29/18 23:15 Dose: Not Given Insulin Human Lispro (Humalog High) 0 units SC ACHS [facility]; Protocol Last Admin: 05/30/18 08:02 Dose: Not Given Insulin Lispro Protam/Lispro Human (Humalog Mix 75/25) 18 units SC ACBD [facility] Last Admin: 05/30/18 08:45 Dose: 18 units Losartan Potassium (Cozaar) 50 mg PO Q12 [facility] Last Admin: 05/30/18 10:06 Dose: 50 mg Meloxicam (Mobic) 15 mg PO DAILY [facility] [place] Last Admin: 05/30/18 10:06 Dose: 15 mg Mupirocin (Bactroban Ointment) 0 gm TOP BID [facility] [place] Last Admin: 05/29/18 17:42 Dose: 2 applic Oxychlorosene Sodium (Clorpactin Wcs-90) 2 gm TOP DAILY [facility] [place] Last Admin: 05/29/18 10:00 Dose: Not Given Oxycodone/Acetaminophen (Percocet 5/325 Mg Tab) 1 tab PO Q6H PRN PRN Reason: Pain, moderate (4-7) Stop: 05/31/18 11:44 Last Admin: 05/30/18 05:21 Dose: 1 tab Zolpidem Tartrate (Ambien) 5 mg PO HS PRN; Protocol PRN Reason: Insomnia Last Admin: 05/29/18 21:48 Dose: 5 mg - Labs Labs: 05/30/18 10:30 05/29/18 07:30 PT 14.0 SECONDS (9.4-12.5) H 05/23/18 13:50 INR 1.26 05/23/18 13:50 APTT 30.5 Seconds (26.9-38.3) 05/23/18 13:50 - Constitutional Appears: Well, Non-toxic, No Acute Distress - Head Exam Head Exam: ATRAUMATIC, NORMOCEPHALIC - Extremities Exam Additional comments: VASC: DP and PT pulses palpable 2/4 b/l. CFT <3 seconds to digits. Temperature gradient warm to warm b/l. Perimalleolar edema present b/l. NEURO: Light touch and protective sensation diminished bilaterally. 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 No pain on palpation noted to wound. - Neurological Exam Neurological Exam: Alert, Awake, Oriented x3 - Psychiatric Exam Psychiatric exam: Normal Affect, Normal Mood Assessment and Plan - Assessment and Plan (Free Text) Assessment: 67F with left plantar foot ulceration and left foot abscess Plan: Patient seen and evaluated with Dr. 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 Can be followed as outpatient by podiatry Podiatry will continue to follow <Britton Frazier - Last Filed: 05/30/18 19:12> Objective - Vital Signs/Intake and Output Vital Signs (last 24 hours): Temp Pulse Resp BP Pulse Ox 98.5 F 77 20 171/78 H 100 05/30/18 12:00 05/30/18 12:00 05/30/18 12:00 05/30/18 12:00 05/30/18 06:00 Intake and Output: 05/30/18 05/31/18 18:59 06:59 Intake Total 100 Balance 100 - Labs Labs: 05/30/18 10:30 05/29/18 07:30 PT 14.0 SECONDS (9.4-12.5) H 05/23/18 13:50 INR 1.26 05/23/18 13:50 APTT 30.5 Seconds (26.9-38.3) 05/23/18 13:50 Attending/Attestation - Attestation I have personally seen and examined this patient.: Yes I have fully participated in the care of the patient.: Yes I have reviewed all pertinent clinical information, including history, physical exam and plan: Yes
[2018-05-30 12:59] VITALS: BP 171/78; PULSE 77; TEMP 98.5
[2018-05-30] MEDS ORDERED: Vancomycin 1gm in NS 250ml 1 GM/250 ML BAG IVPB SCH (14:00)
--- NOTE | 2018-05-30 15:37 | CP.PCM.PN ---
Subjective - Date & Time of Evaluation Date of Evaluation: 05/30/18 Time of Evaluation: 14:15 - Subjective Subjective: Still having shoulder pain, no fevers, still with left foot pain, no diarrhea, no nausea. Objective - Vital Signs/Intake and Output Vital Signs (last 24 hours): Temp Pulse Resp BP Pulse Ox 97.4 F L 80 18 154/68 H 96 05/29/18 12:00 05/29/18 12:00 05/29/18 12:00 05/29/18 11:07 05/29/18 06:00 Intake and Output: 05/29/18 05/29/18 06:59 18:59 Intake Total 1040 Output Total 600 Balance 440 - Medications Medications: Current Medications Aspirin (Ecotrin) 81 mg PO DAILY [facility] Last Admin: 05/29/18 11:09 Dose: 81 mg Enoxaparin Sodium (Lovenox) 40 mg SC DAILY [facility]; Protocol Last Admin: 05/29/18 11:09 Dose: 40 mg Glimepiride (Amaryl) 4 mg PO DAILY [facility] Last Admin: 05/29/18 11:13 Dose: 4 mg Ceftriaxone Sodium (Rocephin 2 Gm Ivpb) 2 gm in 100 mls @ 100 mls/hr IVPB DAILY [facility]; Protocol Stop: 06/02/18 10:16 Last Admin: 05/29/18 11:09 Dose: 100 mls/hr Vancomycin HCl 1.5 gm/ Sodium (Chloride) 500 mls @ 167 mls/hr IVPB Q12H [facility]; Protocol Last Admin: 05/29/18 11:11 Dose: 167 mls/hr Insulin Human Lispro (Humalog High) 0 units SC ACHS [facility]; Protocol Last Admin: 05/29/18 13:10 Dose: 2 units Insulin Lispro Protam/Lispro Human (Humalog Mix 75/25) 18 units SC ACBD [facility] Last Admin: 05/29/18 08:00 Dose: Not Given Losartan Potassium (Cozaar) 50 mg PO Q12 [facility] Last Admin: 05/29/18 11:07 Dose: 50 mg Meloxicam (Mobic) 15 mg PO DAILY [facility] Last Admin: 05/29/18 11:07 Dose: 15 mg Mupirocin (Bactroban Ointment) 0 gm TOP BID [facility] Last Admin: 05/29/18 11:13 Dose: 2 applic Oxychlorosene Sodium (Clorpactin Wcs-90) 2 gm TOP DAILY [facility] Oxycodone/Acetaminophen (Percocet 5/325 Mg Tab) 1 tab PO Q6H PRN PRN Reason: Pain, moderate (4-7) Stop: 05/31/18 11:44 Last Admin: 05/29/18 11:06 Dose: 1 tab Zolpidem Tartrate (Ambien) 5 mg PO HS PRN; Protocol PRN Reason: Insomnia Last Admin: 05/28/18 23:11 Dose: 5 mg - Labs Labs: 05/29/18 10:00 05/29/18 07:30 PT 14.0 SECONDS (9.4-12.5) H 05/23/18 13:50 INR 1.26 05/23/18 13:50 APTT 30.5 Seconds (26.9-38.3) 05/23/18 13:50 - Constitutional Appears: Chronically Ill - Head Exam Head Exam: NORMAL INSPECTION - Neck Exam Neck Exam: absent: Meningismus - Respiratory Exam Respiratory Exam: Decreased Breath Sounds - Cardiovascular Exam Cardiovascular Exam: +S1, +S2 - GI/Abdominal Exam GI & Abdominal Exam: Soft. absent: Tenderness - Extremities Exam Additional comments: left foot with dressings in place Assessment and Plan - Assessment and Plan (Free Text) Plan: Assessment Sepsis due to Group B strep bacteremia, source not clear, in this patient with left foot skin and skin structure infection with abscess S/P bedside I and D showing MRSA, with no osteomyelitis on MRI; patient also with right shoulder a cromial bursitis DM morbid obesity with BMI 42 Plan MRI reviewed patient received steroid injection into the right shoulder joint - discussed with Dr. Flores on Vancomycin and Rocephin (day 7 from first negative blood cx) - changed Vancomycin to Doxycycline which will cover MRSA 2D echo does not show vegetations as per official reading since source is not clear and there is Strep bacteremia, will recommend total 4 weeks of antibiotics (i.e. 3 more weeks from today); may use Doxycycline instead of Vancomycin on discharge to the rehab facility (at least 2 more weeks for the Doxycycline - conveyed this to the top case assembler and nurse practitioner Maricruz Jennings
--- NOTE | 2018-06-02 08:55 | DS ---
HISTORY OF PRESENT ILLNESS: The patient is 67-year-old who came in after she passed out. She is complaining of right shoulder pain. She was unable to walk. She was brought in. Now, she was found to have bacteremia and she was growing beta-hemolytic Streptococcus group B . She also has MRSA in her left foot wound. So, she has been on IV antibiotic. Had echocardiogram done. Negative for vegetation. She also had MRI of the left foot done, negative for osteomyelitis. So, it was decided to give her antibiotics for a total of 3 to 4 weeks. She has been on IV vanco and Rocephin. PHYSICAL EXAMINATION: GENERAL: On examination today, she is awake, alert, oriented. She underwent right intraarticular steroid injection with some improvement in her right shoulder pain. Otherwise, she is eating and tolerating. VITAL SIGNS: She is afebrile, pulse 72, respirations 20, blood pressure 150/71. LUNGS: Bilateral fair airflow. No rhonchi or crackle. HEART: S1 and S2 audible. ABDOMEN: Soft, nontender. No rebound. No guarding. NEUROLOGIC: The patient is awake, alert, oriented, able to communicate. Right shoulder has improved motility since intraarticular injection. Left foot is in the dressing. LABORATORY DATA: WBC is 13, hemoglobin 11.6, hematocrit 36, platelets 405. Chemistry; blood sugar is 119. ASSESSMENT: 1. Status post beta-hemolytic Streptococcus group B bacteremia. Follow up cultures are negative. 2. Left foot abscess and cellulitis, not osteomyelitis. 3. Poorly controlled diabetes. 4. Hypertension. 5. Right shoulder strain versus bursitis. PLAN: The patient is currently on Amaryl. She is on losartan. She is on aspirin. The patient is currently getting insulin 75-25 mix 18 units before breakfast and dinner. She is on Lovenox for DVT prophylaxis. We will give her meloxicam for another 3 to 4 days and will discontinue later on. Currently, the patient is on vanco every 12 hours and Rocephin 2 g daily and arrangement is being made for disposition. The patient will be going to TCU today if she is accepted or subacute rehab in [facility]. Ana Shaikh MD [facility] # [id number]
== END 2018-05-30 18:42 | DRG 872 ==
LOC: ED 12:06 → ERH 16:04 → 2RSO 22:58
PROVIDERS: ADMIT Internal Medicine; ATTEND Internal Medicine
PROC: 0H9NXZZ Drainage of Left Foot Skin, External Approach (ICD-10-PCS; principal; 2018-05-26)
PROC: 3E0U33Z Introduction of Anti-inflammatory into Joints, Percutaneous Approach (ICD-10-PCS; 2018-05-26)
PROC: 3E0U3BZ Introduction of Anesthetic Agent into Joints, Percutaneous Approach (ICD-10-PCS; 2018-05-26)
PROC: 05H633Z Insertion of Infusion Device into Left Subclavian Vein, Percutaneous Approach (ICD-10-PCS; 2018-05-29)
PROC: B547ZZA Ultrasonography of Left Subclavian Vein, Guidance (ICD-10-PCS; 2018-05-29)
DX: A40.1 Sepsis due to streptococcus, group B (principal); Z68.41 Body mass index [BMI] 40.0-44.9, adult; L97.429 Non-pressure chronic ulcer of left heel and midfoot with unspecified severity; L02.612 Cutaneous abscess of left foot; N39.0 Urinary tract infection, site not specified; L03.116 Cellulitis of left lower limb; M19.011 Primary osteoarthritis, right shoulder; E11.65 Type 2 diabetes mellitus with hyperglycemia; E11.40 Type 2 diabetes mellitus with diabetic neuropathy, unspecified; E11.621 Type 2 diabetes mellitus with foot ulcer; E11.51 Type 2 diabetes mellitus with diabetic peripheral angiopathy without gangrene; I10 Essential (primary) hypertension; E03.9 Hypothyroidism, unspecified; E66.01 Morbid (severe) obesity due to excess calories; E87.6 Hypokalemia; M75.51 Bursitis of right shoulder; R29.6 Repeated falls; M75.21 Bicipital tendinitis, right shoulder; B95.62 Methicillin resistant Staphylococcus aureus infection as the cause of diseases classified elsewhere; E78.5 Hyperlipidemia, unspecified; M54.2 Cervicalgia; S43.401A Unspecified sprain of right shoulder joint, initial encounter; W18.11XA Fall from or off toilet without subsequent striking against object, initial encounter; Z79.4 Long term (current) use of insulin; Z91.14 Patient's other noncompliance with medication regimen; Z91.19 Patient's noncompliance with other medical treatment and regimen